=== PATIENT | male | born 1960 | race Caucasian/White ===

== ENCOUNTER 2024-06-05 18:24 | Inpatient (IN) ==
--- NOTE | 2024-06-05 18:55 | XRay Report ---
XR chest 1V portable CLINICAL HISTORY: Dyspnea TECHNIQUE: Single frontal radiograph of the chest was obtained. Comparison: None available at the time of this dictation. FINDINGS: No lines and tubes are seen. The cardiomediastinal silhouette is normal. Faint right lower lung airsp florin opacity is suggested. No evidence of pleural effusion or pneumothorax. IMPRESSION: Possible right lower lung airspace opacity. This may represent atelectasis, pneumonia, and/or aspirat ion. ACT 112: Negative or not required by law. Electronically signed by: Bobby Chou M.D. 06/05/2024 6:53 PM
[2024-06-05 20:11] LABS: Basophils # (auto) 0.03 K/uL (0.00-0.20); Basophils % (auto) 0.3 %; Eosinophils # (auto) 0.03 K/uL (0.00-0.50); Eosinophils % (auto) 0.3 %; Immature Granulocytes # (auto) 0.03 K/uL (0.01-0.20); Immature Granulocytes % (auto) 0.3 %; Lymphocytes # (auto) 0.96 K/uL (1.20-3.40); Lymphocytes % (auto) 10.9 %; Mean Corpuscular Hemoglobin 31.4 pg (25.0-34.0); Mean Corpuscular Hgb Conc 34.8 g/dL (32.0-36.0); Mean Corpuscular Volume 90.4 fL (80.0-100.0); Mean Platelet Volume 8.7 fL (9.4-12.4); Monocytes # (auto) 0.89 K/uL (0.11-0.59); Monocytes % (auto) 10.1 %; Neutrophils # (auto) 6.87 K/uL (1.40-6.50); Neutrophils % (auto) 78.1 %; Platelet Count 256 K/uL (130-400); RDW Coefficient of Variation 11.9 % (11.5-14.5); RDW Standard Deviation 39.4 fL (36.4-46.3); Red Blood Count 5.09 M/uL (4.70-6.10); White Blood Count 8.81 K/ul (4.8-10.8)
[2024-06-05] MEDS: ACETAMINOPHEN 500 MG TAB PO STA (20:20)
[2024-06-05 20:27] LABS: Albumin Level 4.1 gm/dl (3.4-5.0); BUN Creatinine Ratio 20.5 (10-20); Bilirubin,Total 0.5 mg/dl (0.2-1.0); Calcium 9.7 mg/dl (8.6-10.3); Creatinine Clr Calc Pharmacy 84.8 ml/min; Globulin 4.1 gm/dl (2.5-4.0); Potassium 4.4 mmol/L (3.5-5.1); Total Protein 8.2 gm/dl (6.0-8.3)
[2024-06-05 20:33] LABS: Troponin I High Sensitivity 7.9 pg/ml (0-20)
[2024-06-05] MEDS: ACETAMINOPHEN 1,000 MG/100 ML VIAL IV STA (20:35)
[2024-06-05 20:44] LABS: INR 1.1 (0.9-1.1); Partial Thromboplastin Time 27 Seconds (21-31); Prothrombin Time 11.4 Seconds (9.0-12.0)
[2024-06-05] MEDS: OPTIRAY 320 100ml IV ONE (20:55)
[2024-06-05 20:57] LABS: Adenovirus PCR Not Detected (NotDetected); Bordetella parapertussis PCR Not Detected (NotDetected); Bordetella pertussis PCR Not Detected (NotDetected); Chlamydia pneumoniae PCR Not Detected (NotDetected); Coronavirus 229E PCR Not Detected (NotDetected); Coronavirus CoV-2 (COVID19)PCR Not Detected (NotDetected); Coronavirus HKU1 PCR Not Detected (NotDetected); Coronavirus NL63 PCR Not Detected (NotDetected); Coronavirus OC43PCR Not Detected (NotDetected); Human Metapneumovirus PCR Not Detected (NotDetected); Influenza A PCR Not Detected (NotDetected); Influenza B PCR Not Detected (NotDetected); Mycoplasma pneumoniae PCR Not Detected (NotDetected); Parainfluenza Virus 1 PCR Not Detected (NotDetected); Parainfluenza Virus 2 PCR Not Detected (NotDetected); Parainfluenza Virus 3 PCR Not Detected (NotDetected); Parainfluenza Virus 4 PCR Not Detected (NotDetected); Respiratory Syncytial VirusPCR Not Detected (NotDetected); Rhinovirus/Enterovirus PCR Not Detected (NotDetected)
--- NOTE | 2024-06-05 21:30 | Emergency Department Note ---
Impression & Plan Acute dyspnea, Cough, Bilateral pneumonia, Fever ED Provider Note HISTORY OF PRESENT ILLNESS: Patient is a 64-year-old male presenting with shortness of breath and cough. Patient reports he has been feeling generally unwell for the last 4 days. Reports his symptoms have been getting progressively worse. He saw his primary care provider 4 days ago and was diagnosed with an upper respiratory infection and started on Augmentin. He states he was also given prescription for Tessalon Perles. He reports that he has significant shortness of breath with any sort of ambulation and with laying flat at night. He denies any DVT or PE history. He is not on any anticoagulation. He denies any measured fevers at home. He denies any recent sick contact exposures. He reports he has been short of breath and has had a cough productive of a yellow sputum. He denies any abdominal pain, nausea or vomiting. ROS: as above PHYSICAL EXAM: Constitutional: Patient appears in no acute distress. HENT: Head: Normocephalic and atraumatic. Eyes: EOMI, PERRL Mouth/Throat: Mucous membranes moist. Neck: Trachea midline. Neck supple. Cardiovascular: Tachycardic with regular rhythm. No murmurs, rubs or gallops. Intact distal pulses. Pulmonary/Chest: No respiratory distress. Breath sounds clear and equal bilaterally. No wheezes or rales. Abdominal: Abdomen soft, no tenderness, rebound or guarding. Musculoskeletal: No edema, tenderness or deformity noted. Skin: Warm and dry. No rash, erythema, pallor or cyanosis Psychiatric: Appropriate mood and affect for situation. Neurological: Alert and keenly responsive. CN II-XII grossly intact, moving all extremities equally and fully. MDM: - Vitals signs showed fever, tachycardia and tachypnea - History obtained via patient. History as above. - Chronic conditions affecting care: HLD - Differential diagnoses include, but are not limited to: Congestive heart failure; acute coronary syndrome; COPD/asthma exacerbation; pulmonary edema; pulmonary embolism; pneumonia; pneumothorax; viral syndrome - Order placed for continuous cardiac monitoring. At this time, monitor showed rate of 98 bpm with normal sinus rhythm, per my interpretation. - External medical records reviewed. Primary care visit note dated 06/02/2024 was reviewed. Patient was prescribed Augmentin for treatment of a presumed URI. - EKG interpreted by myself showed normal sinus rhythm. Rate tachycardic at 101 bpm. QT 324. No acute ischemic changes. - Laboratory workup interpreted by myself showed normal WBC but elevated neutrophils; normal PT/INR; normal lactate; slight hyponatremia (Na 135); normal troponin; normal procalcitonin - CXR showed concern for bilateral pneumonia, per my interpretation. - Viral respiratory panel negative - Given patient's significant tachycardia, CT PE obtained. CT PE negative for PE, but noted to have patchy bilateral nodular interstitial infiltrate (L>R) concerning for pneumonia. - Patient given 1g IV tylenol for his headache and fever. On reassessment, he still complaining of a headache. - Patient given 1L NS, 5 mg IV compazine and 25 mg IV benadryl for further headache management. - Started on IV rocephin + doxycycline for pneumonia coverage. - Discussed results with patient. He reports that he is feeling generally unwell and questions his ability to go home at this point. He was previously on Augmentin and has been on Augmentin for the last few days and still has findings of pneumonia. Will admit to hospital service for further evaluation and management. - Discussion was had with case filler about patient's case and need for admission - Hospitalist, Dr. Inman, consulted for admission - [facility] ASSESSMENT AND PLAN: Diagnosis: acute dyspnea; headache; bilateral pneumonia; fever Plan: admit Past Med/Surg History Problem List (Updated 06/05/24 @ 23:01 by Judi Heredia MD) Fever (Acute) Bilateral pneumonia (Acute) Cough (Acute) Acute dyspnea (Acute) Hyperlipidemia Medical History History of rheumatic fever Surgical History Status post cystoscopy Family History Mother Diabetes Grandfather (Maternal) Diabetes Father Myocardial infarction Coronary heart disease Denies family history of Ovarian cancer Prostate cancer Breast cancer Lung cancer Colorectal cancer Social History Smoking Status: Unknown if ever smoked Tobacco Type: Smokeless Tobacco (Dip or Chew) Age Started Using Tobacco: 13; Age Quit Using Tobacco: 56; Second Hand Exposure: No; Do You Dip or Chew Tobacco: No; Hx Alcohol Use: Yes Alcohol type: beer Alcohol Intake Frequency: 2-3 x/Week Alcohol Intake Frequency Comment: drinks 10-12 beers 2x weekly Hx Substance Use: No Preferred Language: Mauritian Visual Impairment: No Limitations Hearing Ability: Normal 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 Beliefs That Will Affect Care: None marital status: marital status details: currently engaged Current Living Situation: Significant Other current occupational status: retired current occupation: Retired [employer]; How many Children do You have: 0 Feels Safe at Home: Yes Childhood Exposure to Second-Hand Smoke: Yes Diet: regular caffeine: Yes during the past year weight has: remained stable Dental Care, Regularly: Yes Physical Activity Frequency: Daily Physical Activity Frequency Comment: works daily Seatbelt Use: always Sunscreen Use: No Allergies Allergies Allergy/AdvReac Type Severity Reaction Status Date / Time No Known Allergies Allergy Unverified 06/02/24 12:33 Home Meds Previous Rx's Medication Instructions Recorded rosuvastatin 10 mg tablet (Crestor) 10 mg PO DAILY #90 tabs 08/21/23 amoxicillin 875 mg-potassium 1 tab PO BID 7 days #14 tabs 06/02/24 clavulanate 125 mg tablet benzonatate 200 mg capsule 200 mg PO TID PRN cough #20 caps 06/02/24 Results & Data (ED) Vital Signs Vital Signs - 24 hr 06/05/24 18:28 06/05/24 20:02 06/05/24 20:07 Temperature 38.6 C H Temperature Source Oral Pulse Rate 123 H Pulse Rate [Apical] 105 H Respiratory Rate 20 24 Respiratory Effort / Characteristics Non-Labored Respiratory Depth Normal Blood Pressure 126/73 Blood Pressure [Right Arm] 161/94 H Blood Pressure Mean 90 Blood Pressure Mean [Right Arm] 116 Blood Pressure Position [Right Arm] Pulse Oximetry 94 94 Oxygen Delivery Method Room Air Room Air Room Air Sepsis Recent Fever Within 48 Hours No Sepsis New/Unexplained Change in Mental Status N/A Sepsis Action Taken by Nursing No Action Required 06/05/24 21:00 06/05/24 22:00 Temperature 38.0 C H 37.8 C H Temperature Source Oral Oral Pulse Rate Pulse Rate [Apical] 98 H 90 Respiratory Rate 27 H 22 Respiratory Effort / Characteristics Non-Labored Non-Labored Respiratory Depth Normal Blood Pressure Blood Pressure [Right Arm] 122/80 128/75 Blood Pressure Mean Blood Pressure Mean [Right Arm] 94 92 Blood Pressure Position [Right Arm] Lying Lying Pulse Oximetry 92 95 Oxygen Delivery Method Room Air Room Air Sepsis Recent Fever Within 48 Hours Sepsis New/Unexplained Change in Mental Status Sepsis Action Taken by Nursing Laboratory Data 06/05/24 19:56 06/05/24 19:56 Lab Results 06/05/24 06/05/24 Range/Units 19:56 20:40 WBC 8.81 (4.8-10.8) K/ul RBC 5.09 (4.70-6.10) M/uL Hgb 16.0 (14.0-18.0) g/dl Hct 46.0 (42.0-52.0) % MCV 90.4 (80.0-100.0) fL MCH 31.4 (25.0-34.0) pg MCHC 34.8 (32.0-36.0) g/dL RDW Std Deviation 39.4 (36.4-46.3) fL RDW Coeff of [place] 11.9 (11.5-14.5) % Plt Count 256 (130-400) K/uL MPV 8.7 L (9.4-12.4) fL Immature Gran % (Auto) 0.3 % Neut % (Auto) 78.1 % Lymph % (Auto) 10.9 % Wilkin % (Auto) 10.1 % Eos % (Auto) 0.3 % Baso % (Auto) 0.3 % Neut # (Auto) 6.87 H (1.40-6.50) K/uL Lymph # (Auto) 0.96 L (1.20-3.40) K/uL Wilkin # (Auto) 0.89 H (0.11-0.59) K/uL Eos # (Auto) 0.03 (0.00-0.50) K/uL Baso # (Auto) 0.03 (0.00-0.20) K/uL Immature Gran # (Auto) 0.03 (0.01-0.20) K/uL PT 11.4 (9.0-12.0) Seconds INR 1.1 (0.9-1.1) APTT 27 (21-31) Seconds PTT Ratio 1.0 Sodium 135 L (136-145) mmol/L Potassium 4.4 (3.5-5.1) mmol/L Chloride 104 (98-107) mmol/L Carbon Dioxide 25 (21-32) mmol/L Anion Gap 6 (3-11) BUN 23 (6-23) mg/dl Creatinine 1.12 (0.6-1.4) mg/dl Est Cr Clr Drug Dosing 84.8 ml/min eGFR 74.28 BUN/Creatinine Ratio 20.5 H (10-20) Glucose 114 H (70-99(Fasting)) mg/dl Lactate 1.2 (0.4-2.0) mmol/L Calcium 9.7 (8.6-10.3) mg/dl Total Bilirubin 0.5 (0.2-1.0) mg/dl AST 18 (13-39) U/L ALT 15 (7-52) U/L Alkaline Phosphatase 80 (34-104) U/L Troponin I High Sens 7.9 (0-20) pg/ml Total Protein 8.2 (6.0-8.3) gm/dl Albumin 4.1 (3.4-5.0) gm/dl Globulin 4.1 H (2.5-4.0) gm/dl Albumin/Globulin Ratio 1.0 (0.9-2) Procalcitonin 0.07 (0-0.5) ng/ml Adenovirus (PCR) Not Detected (NotDetected) B. pertussis DNA (PCR) Not Detected (NotDetected) B.parapertussis DNA PCR Not Detected (NotDetected) C. pneumoniae DNA (PCR) Not Detected (NotDetected) Coronavirus OC43 (PCR) Not Detected (NotDetected) Coronavirus HKU1 (PCR) Not Detected (NotDetected) Coronavirus 229E (PCR) Not Detected (NotDetected) SARS-CoV-2 (PCR) Not Detected (NotDetected) Coronavirus NL63 (PCR) Not Detected (NotDetected) Human Metapneumovir PCR Not Detected (NotDetected) Influenza Type A (PCR) Not Detected (NotDetected) Influenza Type B (PCR) Not Detected (NotDetected) M. pneumoniae (PCR) Not Detected (NotDetected) Parainfluenza 1 (PCR) Not Detected (NotDetected) Parainfluenza 2 (PCR) Not Detected (NotDetected) Parainfluenza 3 (PCR) Not Detected (NotDetected) Parainfluenza 4 (PCR) Not Detected (NotDetected) RSV (PCR) Not Detected (NotDetected) Entero/Rhino (PCR) Not Detected (NotDetected) Administered Medications Discontinued Medications Acetaminophen (Acetaminophen 500 Mg Tab) 1,000 mg PO NOW STA Stop: 06/05/24 20:14 Last Admin: 06/05/24 20:20 Dose: 1,000 mg Documented By: AN Acetaminophen (Ofirmev) 1,000 mg in 100 mls @ 400 mls/hr IV NOW STA Stop: 06/05/24 20:42 Last Admin: 06/05/24 20:35 Dose: Not Given Documented By: AN Ioversol (Optiray 320 100ml) 119 ml IV ONCE ONE Stop: 06/05/24 20:55 Last Admin: 06/05/24 20:55 Dose: 119 ml Documented By: EDK Imaging Data Radiologist's Impression: Chest X-Ray 06/05/24 18:32 XR chest 1V portable CLINICAL HISTORY: Dyspnea TECHNIQUE: Single frontal radiograph of the chest was obtained. Comparison: None available at the time of this dictation. FINDINGS: No lines and tubes are seen. The cardiomediastinal silhouette is normal. Faint right lower lung airspace opacity is suggested. No evidence of pleural effusion or pneumothorax. IMPRESSION: Possible right lower lung airspace opacity. This may represent atelectasis, pneumonia, and/or aspiration. ACT 112: Negative or not required by law. Electronically signed by: Bobby Chou M.D. 06/05/2024 6:53 PM Chest CTA 06/05/24 20:27 Exam(s): CTA CHEST IV Amt: 119ml opti 320 EXAM: CT Angiography Chest With Intravenous Contrast CLINICAL HISTORY: Reason for exam: PE. TECHNIQUE: Axial computed tomographic angiography images of the chest with intravenous contrast. CTDI is 38.19 mGy and DLP is 807.44 mGy-cm. Automated exposure control was utilized for the study. A dose lowering technique was utilized adhering to the principles of ALARA. MIP reconstructed images were created and reviewed. 119 mL OPTi 320 given IV. Excellent pulmonary arterial contrast. COMPARISON: Chest x-ray done earlier the same day, and a CT abdomen pelvis 09/07/2019. FINDINGS: Pulmonary arteries: No pulmonary embolism. Aorta: No dissection or aneurysm. Lungs: Nodular interstitial infiltrate intermittently in the left lung and in the right middle lobe, nonspecific, may be chronic or inflammatory/infectious, neoplasm is not excluded.. No consolidation. Pleural space: No significant effusion. No pneumothorax. Heart: No cardiomegaly. No significant pericardial effusion. No evidence of elevated right heart pressures. Bones/joints: No acute fracture. Soft tissues: Unremarkable. Lymph nodes: Mildly prominent left subcarinal lymph node, short axis I 0.6 cm. Nonenlarged left hilar lymph nodes are also nonspecific. IMPRESSION: 1. No pulmonary embolism. 2. Patchy bilateral nodular interstitial infiltrate, left greater than right, nonspecific, could reflect pneumonia, though neoplasm is not excluded. 3. Mildly prominent mediastinal and left hilar lymph nodes, nonspecific. Electronically signed by: Marlin Bowles M.D. 06/05/24 21:27 PM Discharge Plan Visit Data Chief Complaint: Shortness of Breath/Dyspnea Stated Complaint: SOB, WEAK, VOMIT ED Provider: Judi Heredia Discharge Problem: Acute dyspnea, Cough, Bilateral pneumonia, Fever Forms Stand Alone Forms: My [facility] [place] [employer] Prescriptions Prescriptions: No Action rosuvastatin [Crestor] 10 mg tablet 10 mg PO DAILY Qty: 90 2RF amoxicillin-pot clavulanate 875-125 mg tablet 1 tab PO BID 7 Days Qty: 14 0RF benzonatate 200 mg capsule 200 mg PO TID PRN (Reason: cough) Qty: 20 0RF Referrals Referrals: Nubia Arevalo DO [Primary Care Provider] -
[2024-06-05] MEDS: SODIUM CHLORIDE 0.9% 1,000 ML IV ONE (23:07)
[2024-06-05] MEDS: diphenhydrAMINE 50 MG/ML VIAL IV STA (23:07)
[2024-06-05] MEDS: cefTRIAXone SODIUM 2,000 MG/50 ML BAG IV STA (23:08)
[2024-06-05] MEDS: PROCHLORPERAZINE 1 ML IV ONE (23:08)
[2024-06-05] MEDS: DOXYCYCLINE HYCLATE 100 MG in DEXTROSE 5% MINI-B 100 ML IV STA (23:45)
[2024-06-05] MEDS ORDERED: ALBUT/IPRATROP 3MG/0.5MG NEB 3 ML VIAL NEB PRN (23:54)
--- NOTE | 2024-06-05 23:57 | History & Physical Report ---
Date of Service June 05, 2024 Assessment & Plan (1) Bilateral pneumonia: (2) Hyperlipidemia: (3) Temporal headache: (4) Fever: (5) Cough: (6) Acute dyspnea: Plan Bilateral pneumonia- Patient presents with 1 week of worsening temporal headache, intermittently productive cough, shortness of breath, dyspnea on exertion and fatigue. Patient was seen at PCPs office on 06/02/2024, and was placed on Augmentin 875 mg twice daily, and Tessalon Perles 200 mg p.o. 3 times daily as needed BioFire testing negative this evening CTA chest was negative for PE. Did show bilateral infiltrates, left greater than right, with mediastinal and left hilar lymphadenopathy. Sputum Gram stain and culture Continue ceftriaxone 2 g IV and doxycycline 100 mg IV every 12 hours begun in the ED Give Solu-Medrol 60 mg IV now, and then 40 mg IV every 12 hours Guaifenesin 1200 mg p.o. 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 He also reports a bitemporal headache, and overall feels dehydrated associated with decreased oral intake due to decreased appetite. He went to his PCP on 06/02/2024, received a prescription for Augmentin and Tessalon Perles, and presents to the ED due to worsening of symptoms Primary Care Provider: Nubia Arevalo DO The patient is a 64-year-old male with a past medical history including hyperlipidemia, who presents to the emergency department with symptoms as noted above. Workup in the emergency department including a negative BioFire test, the chest x-ray showed a right lower lobe infiltrate, and CTA chest was negative for PE, showed bilateral infiltrates left greater than right, and mediastinal and left hilar lymphadenopathy. Allergies Allergy/AdvReac Type Severity Reaction Status Date / Time No Known Allergies Allergy Unverified 06/02/24 12:33 Home Medications Medication Instructions Recorded Confirmed Type rosuvastatin 10 mg tablet (Crestor) 10 mg PO DAILY #90 tabs 08/21/23 06/05/24 Rx amoxicillin 875 mg-potassium 1 tab PO BID 7 days #14 tabs 06/02/24 06/05/24 Rx clavulanate 125 mg tablet benzonatate 200 mg capsule 200 mg PO TID PRN cough #20 caps 06/02/24 06/05/24 Rx Past Med/Surg History Problem List (Updated 06/06/24 @ 01:10 by Lamin Inman MD) Temporal headache Fever (Acute) Bilateral pneumonia (Acute) Cough (Acute) Acute dyspnea (Acute) Hyperlipidemia Medical History History of rheumatic fever Surgical History Status post cystoscopy Family History Mother Diabetes Grandfather (Maternal) Diabetes Father Myocardial infarction Coronary heart disease Denies family history of Ovarian cancer Prostate cancer Breast cancer Lung cancer Colorectal cancer Social History Smoking Status: Unknown if ever smoked Tobacco Type: Smokeless Tobacco (Dip or Chew) Age Started Using Tobacco: 13; Age Quit Using Tobacco: 56; Second Hand Exposure: No; Do You Dip or Chew Tobacco: No; Hx Alcohol Use: Yes Alcohol type: beer Alcohol Intake Frequency: 2-3 x/Week Alcohol Intake Frequency Comment: drinks 10-12 beers 2x weekly Hx Substance Use: No Preferred Language: [place] Island[place] Visual Impairment: No Limitations Hearing Ability: Normal Community Pharmacist Required: No Beliefs That Will Affect Care: None marital status: marital status details: currently engaged Current Living Situation: Significant Other current occupational status: retired 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 [employer]; How many Children do You have: 0 Feels Safe at Home: Yes Childhood Exposure to Second-Hand Smoke: Yes Diet: regular caffeine: Yes during the past year weight has: remained stable Dental Care, Regularly: Yes Physical Activity Frequency: Daily Physical Activity Frequency Comment: works daily Seatbelt Use: always Sunscreen Use: No Review of Systems Review of Systems: The patient denies chest pain, palpitations, lower extremity swelling, sore throat, fevers, chills, sweats, nausea, vomiting, diarrhea , constipation, abdominal pain, pelvic pain, blood in urine or stool, dysuria, urinary frequency or urgency, memory loss, loss of consciousness, rash, abnormal bruising or bleeding, imbalance, focal weakness, numbness or tingling in arms or legs, generalized arthralgias or myalgias, back or neck pain, or night sweats. The review of systems is otherwise negative other than for that already noted above, and at least 10 systems have been reviewed. Physical Exam Physical Exam: The patient is awake, alert and oriented 3, well developed and well nourished, normocephalic and atraumatic, lying in bed and in no acute distress. HEENT--PERRL, EOMI, mucous membranes and oropharynx dry. Neck--supple. No JVD. No bruits. Thyroid normal, trachea midline, no adenopathy. Heart--normal S1 and S2. No murmurs, rubs or gallops. Lungs--coarse breath sounds with wheezes bilaterally. no respiratory distress, no accessory muscle use. Abdomen--normal bowel sounds and soft. Nontender. Nondistended, no hernias or masses, no organomegaly. Extremities--no cyanosis or clubbing. No edema. There are good distal pulses b/l. Dermatologic--normal skin turgor, normal color, no abnormal lymph nodes, no rash. Neurologic--cranial nerves II through XII grossly intact. Rheumatologic--normal range of motion. Psychiatric--normal affect. Results & Data Results & Data Vital Signs (Past 12 Hours) Vital Signs Temp Pulse Pulse Resp BP BP Pulse Ox 06/05/24 23:13 37.5 C 88 21 141/80 H 94 06/05/24 22:00 37.8 C H 90 22 128/75 95 06/05/24 21:00 38.0 C H 98 H 27 H 122/80 92 06/05/24 20:07 38.6 C H 105 H 24 161/94 H 94 06/05/24 20:02 06/05/24 18:28 123 H 20 126/73 94 O2 Del Method 06/05/24 23:13 Room Air 06/05/24 22:00 Room Air 06/05/24 21:00 Room Air 06/05/24 20:07 Room Air 06/05/24 20:02 Room Air 06/05/24 18:28 Room Air Laboratory Results Laboratory Results WBC 8.81 K/ul (4.8-10.8) 06/05/24 19:56 RBC 5.09 M/uL (4.70-6.10) 06/05/24 19:56 Hgb 16.0 g/dl (14.0-18.0) 06/05/24 19:56 Hct 46.0 % (42.0-52.0) 06/05/24 19:56 MCV 90.4 fL (80.0-100.0) 06/05/24 19:56 MCH 31.4 pg (25.0-34.0) 06/05/24 19:56 MCHC 34.8 g/dL (32.0-36.0) 06/05/24 19:56 RDW Std Deviation 39.4 fL (36.4-46.3) 06/05/24 19:56 RDW Coeff of [place] 11.9 % (11.5-14.5) 06/05/24 19:56 Plt Count 256 K/uL (130-400) 06/05/24 19:56 MPV 8.7 fL (9.4-12.4) L 06/05/24 19:56 Immature Gran % (Auto) 0.3 % 06/05/24 19:56 Neut % (Auto) 78.1 % 06/05/24 19:56 Lymph % (Auto) 10.9 % 06/05/24 19:56 [place] % (Auto) 10.1 % 06/05/24 19:56 Eos % (Auto) 0.3 % 06/05/24 19:56 Baso % (Auto) 0.3 % 06/05/24 19:56 Neut # (Auto) 6.87 K/uL (1.40-6.50) H 06/05/24 19:56 Lymph # (Auto) 0.96 K/uL (1.20-3.40) L 06/05/24 19:56 [place] # (Auto) 0.89 K/uL (0.11-0.59) H 06/05/24 19:56 Eos # (Auto) 0.03 K/uL (0.00-0.50) 06/05/24 19:56 Baso # (Auto) 0.03 K/uL (0.00-0.20) 06/05/24 19:56 Immature Gran # (Auto) 0.03 K/uL (0.01-0.20) 06/05/24 19:56 PT 11.4 Seconds (9.0-12.0) 06/05/24 19:56 INR 1.1 (0.9-1.1) 06/05/24 19:56 APTT 27 Seconds (21-31) 06/05/24 19:56 PTT Ratio 1.0 06/05/24 19:56 Sodium 135 mmol/L (136-145) L 06/05/24 19:56 Potassium 4.4 mmol/L (3.5-5.1) 06/05/24 19:56 Chloride 104 mmol/L (98-107) 06/05/24 19:56 Carbon Dioxide 25 mmol/L (21-32) 06/05/24 19:56 Anion Gap 6 (3-11) 06/05/24 19:56 BUN 23 mg/dl (6-23) 06/05/24 19:56 Creatinine 1.12 mg/dl (0.6-1.4) 06/05/24 19:56 Est Cr Clr Drug Dosing 84.8 ml/min 06/05/24 19:56 eGFR 74.28 06/05/24 19:56 BUN/Creatinine Ratio 20.5 (10-20) H 06/05/24 19:56 Glucose 114 mg/dl (70-99(Fasting)) H 06/05/24 19:56 Lactate 1.2 mmol/L (0.4-2.0) 06/05/24 20:40 Calcium 9.7 mg/dl (8.6-10.3) 06/05/24 19:56 Total Bilirubin 0.5 mg/dl (0.2-1.0) 06/05/24 19:56 AST 18 U/L (13-39) 06/05/24 19:56 ALT 15 U/L (7-52) 06/05/24 19:56 Alkaline Phosphatase 80 U/L (34-104) 06/05/24 19:56 Troponin I High Sens 7.9 pg/ml (0-20) 06/05/24 19:56 Total Protein 8.2 gm/dl (6.0-8.3) 06/05/24 19:56 Albumin 4.1 gm/dl (3.4-5.0) 06/05/24 19:56 Globulin 4.1 gm/dl (2.5-4.0) H 06/05/24 19:56 Albumin/Globulin Ratio 1.0 (0.9-2) 06/05/24 19:56 Procalcitonin 0.07 ng/ml (0-0.5) 06/05/24 19:56 Adenovirus (PCR) Not Detected (NotDetected) 06/05/24 19:56 B. pertussis DNA (PCR) Not Detected (NotDetected) 06/05/24 19:56 B.parapertussis DNA PCR Not Detected (NotDetected) 06/05/24 19:56 C. pneumoniae DNA (PCR) Not Detected (NotDetected) 06/05/24 19:56 Coronavirus OC43 (PCR) Not Detected (NotDetected) 06/05/24 19:56 Coronavirus HKU1 (PCR) Not Detected (NotDetected) 06/05/24 19:56 Coronavirus 229E (PCR) Not Detected (NotDetected) 06/05/24 19:56 SARS-CoV-2 (PCR) Not Detected (NotDetected) 06/05/24 19:56 Coronavirus NL63 (PCR) Not Detected (NotDetected) 06/05/24 19:56 Human Metapneumovir PCR Not Detected (NotDetected) 06/05/24 19:56 Influenza Type A (PCR) Not Detected (NotDetected) 06/05/24 19:56 Influenza Type B (PCR) Not Detected (NotDetected) 06/05/24 19:56 M. pneumoniae (PCR) Not Detected (NotDetected) 06/05/24 19:56 Parainfluenza 1 (PCR) Not Detected (NotDetected) 06/05/24 19:56 Parainfluenza 2 (PCR) Not Detected (NotDetected) 06/05/24 19:56 Parainfluenza 3 (PCR) Not Detected (NotDetected) 06/05/24 19:56 Parainfluenza 4 (PCR) Not Detected (NotDetected) 06/05/24 19:56 RSV (PCR) Not Detected (NotDetected) 06/05/24 19:56 Entero/Rhino (PCR) Not Detected (NotDetected) 06/05/24 19:56 Impressions Chest X-Ray 06/05/24 18:32 XR chest 1V portable CLINICAL HISTORY: Dyspnea TECHNIQUE: Single frontal radiograph of the chest was obtained. Comparison: None available at the time of this dictation. FINDINGS: No lines and tubes are seen. The cardiomediastinal silhouette is normal. Faint right lower lung airspace opacity is suggested. No evidence of pleural effusion or pneumothorax. IMPRESSION: Possible right lower lung airspace opacity. This may represent atelectasis, pneumonia, and/or aspiration. ACT 112: Negative or not required by law. Electronically signed by: Bobby Chou M.D. 06/05/2024 6:53 PM Chest CTA 06/05/24 20:27 Exam(s): CTA CHEST IV Amt: 119ml opti 320 EXAM: CT Angiography Chest With Intravenous Contrast CLINICAL HISTORY: Reason for exam: PE. TECHNIQUE: Axial computed tomographic angiography images of the chest with intravenous contrast. CTDI is 38.19 mGy and DLP is 807.44 mGy-cm. Automated exposure control was utilized for the study. A dose lowering technique was utilized adhering to the principles of ALARA. MIP reconstructed images were created and reviewed. 119 mL OPTi 320 given IV. Excellent pulmonary arterial contrast. COMPARISON: Chest x-ray done earlier the same day, and a CT abdomen pelvis 09/07/2019. FINDINGS: Pulmonary arteries: No pulmonary embolism. Aorta: No dissection or aneurysm. Lungs: Nodular interstitial infiltrate intermittently in the left lung and in the right middle lobe, nonspecific, may be chronic or inflammatory/infectious, neoplasm is not excluded.. No consolidation. Pleural space: No significant effusion. No pneumothorax. Heart: No cardiomegaly. No significant pericardial effusion. No evidence of elevated right heart pressures. Bones/joints: No acute fracture. Soft tissues: Unremarkable. Lymph nodes: Mildly prominent left subcarinal lymph node, short axis I 0.6 cm. Nonenlarged left hilar lymph nodes are also nonspecific. IMPRESSION: 1. No pulmonary embolism. 2. Patchy bilateral nodular interstitial infiltrate, left greater than right, nonspecific, could reflect pneumonia, though neoplasm is not excluded. 3. Mildly prominent mediastinal and left hilar lymph nodes, nonspecific. Electronically signed by: Marlin Bowles M.D. 06/05/24 21:27 PM Code Status & VTE Plan Code Status Full code VTE Prophylaxis Plan VTE Prophylaxis will be ordered: Yes PG Care Time/CCT Total # of Minutes Spent Total Time Spent with Patient: Total time spent is greater than 50% in coordination of care (as documented) at patient's floor/unit and/or counseling patient: Coding Level of Care Code 54614 INT INP/OBS CARE 2/55MIN Diagnoses Bilateral pneumonia J18.9 Hyperlipidemia E78.5 Temporal headache R51.9 Fever R50.9 Cough R05.9 Acute dyspnea R06.00
[2024-06-06] MEDS: guaiFENesin 600 MG TABCR PO STA (00:31)
[2024-06-06] MEDS: methylPREDNISolone 125 MG/2 ML VIAL IV STA (00:32)
[2024-06-06] MEDS ORDERED: BENZONATATE 100 MG CAPSULE PO PRN (01:44)
[2024-06-06 06:58] LABS: Hemoglobin 14.4 g/dl (14.0-18.0); Mean Corpuscular Hgb Conc 35.1 g/dL (32.0-36.0); Mean Corpuscular Volume 88.4 fL (80.0-100.0); Mean Platelet Volume 8.9 fL (9.4-12.4); Platelet Count 233 K/uL (130-400); RDW Coefficient of Variation 11.8 % (11.5-14.5); RDW Standard Deviation 37.7 fL (36.4-46.3); Red Blood Count 4.64 M/uL (4.70-6.10); White Blood Count 7.87 K/ul (4.8-10.8)
[2024-06-06 07:12] LABS: Albumin Level 3.8 gm/dl (3.4-5.0); BUN Creatinine Ratio 17.8 (10-20); Calcium 8.8 mg/dl (8.6-10.3); Magnesium 1.8 mg/dl (1.7-2.4); Phosphorus 2.3 mg/dl (2.5-4.9); Potassium 4.1 mmol/L (3.5-5.1)
[2024-06-06] MEDS: ACETAMINOPHEN 325 MG TAB PO PRN ×2 (07:29→20:00)
[2024-06-06] MEDS: methylPREDNISolone 40 MG in SYRINGE 0 ML IV SCH (07:29)
[2024-06-06] MEDS: ROSUVASTATIN CALCIUM 10 MG TAB PO SCH (07:30)
[2024-06-06] MEDS: guaiFENesin 600 MG TABCR PO SCH (07:30)
[2024-06-06 07:35] LABS: Basophils # (auto) 0.01 K/uL (0.00-0.20); Basophils % (auto) 0.1 %; Immature Granulocytes # (auto) 0.03 K/uL (0.01-0.20); Immature Granulocytes % (auto) 0.4 %; Lymphocytes # (auto) 0.38 K/uL (1.20-3.40); Lymphocytes % (auto) 4.8 %; Monocytes # (auto) 0.11 K/uL (0.11-0.59); Monocytes % (auto) 1.4 %; Neutrophils # (auto) 7.34 K/uL (1.40-6.50); Neutrophils % (auto) 93.3 %; Polychromasia 1+; Tear Drop Cells 1+
[2024-06-06] MEDS ORDERED: INFLUENZA VACC TS2024-25(6m+)/PF (IIV3) 0.5mL Syr IM ONE (07:52)
[2024-06-06] MEDS: DOXYCYCLINE HYCLATE 100 MG in DEXTROSE 5% MINI-B 100 ML IV SCH (08:19)
[2024-06-06] MEDS ORDERED: methylPREDNISolone 10 mg/mL (For Ped Dose < 7mg) IV SCH (09:00)
--- NOTE | 2024-06-06 12:48 | Hospitalist Progress Note ---
Date of Service June 06, 2024 Assessment & Plan (1) Bilateral pneumonia: Plan: Respiratory BioFire testing negative at time of ER presentation. CTA chest negative for PE. CTA chest did show bilateral infiltrates, left greater than right, with mediastinal and left hilar lymphadenopathy. Day #2 of rocephin; day #2 of doxycycline. Send Legionella urine ag to be complete. He was placed on steroids yesterday pm due to severe wheezing - will continue for now. Schedule duneelbs qid. Tessalon. Mucinex. (2) Positive Lyme disease serology: Plan: Due to persistent fevers, headache, etc I obtained blood cx's x 2 sets along with Lyme testing and anaplasmosis smear. Lyme screen is positive -- both IgM and IgG. This would suggest early disseminated disease. Rocephin or doxy will suffice. I am concerned about the severity of his headache and the refractory nature of such. See below. Consider LP to r/o ORAL AND MAXILLOFACIAL SURGERY RESIDENT lyme disease. Lyme typically does not cause pulmonary symptoms but anaplasmosis can rarely cause such. Will add on anaplasmosis DNA in the am. (3) Temporal headache: Plan: 2nd to #1, #2. Gave toradol + flexeril earlier today --> no relief. Tylenol prn --> no relief. Will try oxycodone prn. He has no h/o migraine, mixed tension-migraine, or cluster headaches. He does not have meningismus, but certainly the refractory nature of his headache is concerning. If he continues to have persistent headache into tomorrow strongly consider LP. Of note - the steroids for #1 may help his headache. (4) Fever: Plan: 2nd to #1? 2nd to #2? other? combination? sent blood cx's. cont rocephin. cont doxy. see discussion above in #1, #2, #3. (5) Hyperlipidemia: Plan: can continue statin for now LFTs have been wnl Plan DVT proph - hold off on chemical DVT proph since we may need to pursue LP tomorrow depending on his clinical status, headaches, etc resume IV fluids due to poor PO intake Admission and Anticipated Discharge Date Admission Date: June 05, 2024 Subjective tele overnight - NSR or sinus tach patient c/o severe frontal/temporal headache he is not one to get headaches denies visual changes denies blurry vision denies neck pain or stiffness denies nasal discharge headache is worsened by coughing denies positional change worsening the headache nothing has helped his headache to date tylenol not helpful toradol / NSAIDs not helpful denies h/o migraines has no appetite denies any recent travel feels he got his illness from a local restaurant Review of Systems Review of Systems: gen - fevers, chills; anorexia cv - no chest pain or orthopnea pulm - no sputum; some wheezing; no dyspnea at rest GI - no abd pain Physical Exam Physical Exam: gen - looks sick but nontoxic, awake, alert head - no tenderness to palpation over his frontal or maxillary sinuses eyes - conjunctival & scleral injection b/l; PERRL; no photophobia mouth - MM slightly dry neck - no meningismus; able to flex his neck completely; no rigidity; no JVD heart - tachy, s1 s2, no murmur lungs - mild b/l wheezes, no rales, no increased work of breathing; airation fair abd - soft NT ND BS+ ext - no edema, pulses 2+ b/l psych - a/o x 3 Results & Data Results & Data Vital Signs (Past 12 Hours) Vital Signs Temp Pulse Pulse Pulse Resp BP BP 06/06/24 11:39 37.5 C 96 H 16 115/67 06/06/24 09:06 38.2 C H 06/06/24 07:56 38.1 C H 108 H 20 134/65 06/06/24 07:26 06/06/24 07:19 103 H 06/06/24 02:04 06/06/24 01:39 38.3 C H 95 H 18 127/77 06/06/24 01:36 96 H 06/06/24 01:21 37.5 C 92 H 18 107/63 06/06/24 01:00 90 18 107/63 Pulse Ox O2 Del Method 06/06/24 11:39 92 Room Air 06/06/24 09:06 06/06/24 07:56 92 Room Air 06/06/24 07:26 Room Air 06/06/24 07:19 06/06/24 02:04 Room Air 06/06/24 01:39 93 Room Air 06/06/24 01:36 06/06/24 01:21 95 Room Air 06/06/24 01:00 94 Room Air Laboratory Results Laboratory Results - last 24 hr 06/05/24 06/05/24 06/06/24 19:56 20:40 06:27 WBC 8.81 7.87 RBC 5.09 4.64 L Hgb 16.0 14.4 Hct 46.0 41.0 L MCV 90.4 88.4 MCH 31.4 31.0 MCHC 34.8 35.1 RDW Std Deviation 39.4 37.7 RDW Coeff of [place] 11.9 11.8 Plt Count 256 233 MPV 8.7 L 8.9 L Immature Gran % (Auto) 0.3 0.4 Neut % (Auto) 78.1 93.3 Lymph % (Auto) 10.9 4.8 [place] % (Auto) 10.1 1.4 Eos % (Auto) 0.3 0.0 Baso % (Auto) 0.3 0.1 Neut # (Auto) 6.87 H 7.34 H Lymph # (Auto) 0.96 L 0.38 L [place] # (Auto) 0.89 H 0.11 Eos # (Auto) 0.03 0.00 Baso # (Auto) 0.03 0.01 Immature Gran # (Auto) 0.03 0.03 Polychromasia 1+ Tear Drop Cells 1+ PT 11.4 INR 1.1 APTT 27 PTT Ratio 1.0 Sodium 135 L 134 L Potassium 4.4 4.1 Chloride 104 104 Carbon Dioxide 25 24 Anion Gap 6 6 BUN 23 18 Creatinine 1.12 1.01 Est Cr Clr Drug Dosing 84.8 93.0 eGFR 74.28 84.09 BUN/Creatinine Ratio 20.5 H 17.8 Glucose 114 H 146 H Lactate 1.2 Calcium 9.7 8.8 Phosphorus 2.3 L Magnesium 1.8 Total Bilirubin 0.5 AST 18 ALT 15 Alkaline Phosphatase 80 Troponin I High Sens 7.9 Total Protein 8.2 Albumin 4.1 3.8 Globulin 4.1 H Albumin/Globulin Ratio 1.0 Procalcitonin 0.07 Adenovirus (PCR) Not Detected Anaplasma Smear B. pertussis DNA (PCR) Not Detected B.parapertussis DNA PCR Not Detected Lyme Disease Screen Lyme Tier 2 IgG Confirm Lyme Tier 2 IgM Confirm C. pneumoniae DNA (PCR) Not Detected Coronavirus OC43 (PCR) Not Detected Coronavirus HKU1 (PCR) Not Detected Coronavirus 229E (PCR) Not Detected SARS-CoV-2 (PCR) Not Detected Coronavirus NL63 (PCR) Not Detected Human Metapneumovir PCR Not Detected Influenza Type A (PCR) Not Detected Influenza Type B (PCR) Not Detected M. pneumoniae (PCR) Not Detected Parainfluenza 1 (PCR) Not Detected Parainfluenza 2 (PCR) Not Detected Parainfluenza 3 (PCR) Not Detected Parainfluenza 4 (PCR) Not Detected RSV (RT-PCR) RSV (PCR) Not Detected Entero/Rhino (PCR) Not Detected 06/06/24 06/06/24 13:05 16:20 WBC RBC Hgb Hct MCV MCH MCHC RDW Std Deviation RDW Coeff of [place] Plt Count MPV Immature Gran % (Auto) Neut % (Auto) Lymph % (Auto) [place] % (Auto) Eos % (Auto) Baso % (Auto) Neut # (Auto) Lymph # (Auto) [place] # (Auto) Eos # (Auto) Baso # (Auto) Immature Gran # (Auto) Polychromasia Tear Drop Cells PT INR APTT PTT Ratio Sodium Potassium Chloride Carbon Dioxide Anion Gap BUN Creatinine Est Cr Clr Drug Dosing eGFR BUN/Creatinine Ratio Glucose Lactate Calcium Phosphorus Magnesium Total Bilirubin AST ALT Alkaline Phosphatase Troponin I High Sens Total Protein Albumin Globulin Albumin/Globulin Ratio Procalcitonin Adenovirus (PCR) Anaplasma Smear See Comment B. pertussis DNA (PCR) B.parapertussis DNA PCR Lyme Disease Screen Positive H Lyme Tier 2 IgG Confirm Positive H Lyme Tier 2 IgM Confirm Positive H C. pneumoniae DNA (PCR) Coronavirus OC43 (PCR) Coronavirus HKU1 (PCR) Coronavirus 229E (PCR) SARS-CoV-2 (PCR) NEGATIVE Coronavirus NL63 (PCR) Human Metapneumovir PCR Influenza Type A (PCR) Negative Influenza Type B (PCR) Negative M. pneumoniae (PCR) Parainfluenza 1 (PCR) Parainfluenza 2 (PCR) Parainfluenza 3 (PCR) Parainfluenza 4 (PCR) RSV (RT-PCR) Negative RSV (PCR) Entero/Rhino (PCR) PG Care Time/CCT Total # of Minutes Spent Total Time Spent with Patient: Total time spent is greater than 50% in coordination of care (as documented) at patient's floor/unit and/or counseling patient: Coding Level of Care Code 90754 SUB INP/OBS CARE 350MIN Diagnoses Bilateral pneumonia J18.9 Positive Lyme disease serology R76.8 Temporal headache R51.9 Fever R50.9 Hyperlipidemia E78.5
[2024-06-06] MEDS: KETOROLAC TROMETHAMINE 15 MG/ML VIAL IV ONE (13:00)
[2024-06-06] MEDS: CYCLOBENZAPRINE HCL 5 MG TAB PO STA (13:19)
[2024-06-06] MEDS: BENZONATATE 100 MG CAPSULE PO SCH (13:20)
--- NOTE | 2024-06-06 13:44 | CT Scan Report ---
CT SCAN OF THE BRAIN WITHOUT IV CONTRAST CLINICAL HISTORY: Headache. COMPARISON STUDY: MRI of the brain dated 01/28/2021. TECHNIQUE: Unenhanced axial CT scan of the brain is performed from the vertex to the skull base. A d ose lowering technique was utilized adhering to the principles of ALARA. There is residual IV contras t throughout the intracranial circulation. This degrades assessment for hemorrhage. CT DOSE: 703.85 mGy.cm FINDINGS: Brain parenchyma: The brain parenchyma is normal in appearance. There is no hemorrhage, mass effect, or evidence of acute territorial ischemia by CT criteria. Min-white matter differentiation is preser nancy. No extra-axial fluid collection is seen. Ventricles, sulci, cisterns: Normal in configuration. Intracranial vasculature: There is moderate atherosclerotic calcification of the cavernous carotid ar teries. Calvarium: Unremarkable. Sinuses and mastoids: There is trace mucosal thickening within the maxillary antra. Mild calcificatio ns noted within the ethmoid and sigmoid sinuses. An air-fluid level is noted in the right sphenoid si nus. There is trace right mastoid effusion. The left mastoid air cells are well pneumatized. Orbits: The bony orbits are grossly intact. IMPRESSION: No acute intracranial abnormality is identified. ACT 112: Negative or not required by law. Electronically signed by: Misha Avelar M.D. 06/06/2024 1:43 PM
[2024-06-06 13:55] LABS: Influenza A virus by PCR Negative (Neg); Influenza B virus by PCR Negative (Neg); RSV by PCR Negative (Neg); SARS CoV2 RNA(COVID-19) Ceph NEGATIVE (Negative)
[2024-06-06] MEDS: ALBUT/IPRATROP 3MG/0.5MG NEB 3 ML VIAL NEB SCH (14:00)
[2024-06-06 17:46] LABS: Lyme Screen Rflx Confirmation Positive (Negative)
[2024-06-06] MEDS ORDERED: oxyCODONE HCL IR 5 MG TAB (IMMEDIATE RELEASE) PO PRN (17:46)
[2024-06-06 18:20] LABS: Lyme Ab IgG 2nd Tier Confirm Positive (Negative); Lyme Ab IgM 2nd Tier Confirm Positive (Negative)
[2024-06-06] MEDS: SODIUM CHLORIDE 0.9% 1,000 ML IV SCH (18:20)
[2024-06-06] MEDS: BUTALBITAL/ACETAMIN/CAFFEINE TAB PO STA (18:20)
[2024-06-06] MEDS: DOXYCYCLINE HYCLATE 100 MG CAP PO SCH (20:00)
[2024-06-06] MEDS: cefTRIAXone SODIUM 2,000 MG/50 ML BAG IV SCH (20:01)
[2024-06-07 06:47] LABS: Basophils # (auto) 0.01 K/uL (0.00-0.20); Basophils % (auto) 0.1 %; Hematocrit (blood only) 41.3 % (42.0-52.0); Hemoglobin 14.2 g/dl (14.0-18.0); Immature Granulocytes # (auto) 0.04 K/uL (0.01-0.20); Immature Granulocytes % (auto) 0.5 %; Lymphocytes # (auto) 0.97 K/uL (1.20-3.40); Lymphocytes % (auto) 11.7 %; Mean Corpuscular Hemoglobin 30.7 pg (25.0-34.0); Mean Corpuscular Hgb Conc 34.4 g/dL (32.0-36.0); Mean Corpuscular Volume 89.4 fL (80.0-100.0); Mean Platelet Volume 9.1 fL (9.4-12.4); Monocytes # (auto) 0.81 K/uL (0.11-0.59); Monocytes % (auto) 9.8 %; Neutrophils # (auto) 6.43 K/uL (1.40-6.50); Neutrophils % (auto) 77.9 %; Platelet Count 233 K/uL (130-400); RDW Coefficient of Variation 11.7 % (11.5-14.5); RDW Standard Deviation 37.9 fL (36.4-46.3); Red Blood Count 4.62 M/uL (4.70-6.10); White Blood Count 8.26 K/ul (4.8-10.8)
[2024-06-07 07:06] LABS: Albumin Level 3.7 gm/dl (3.4-5.0); BUN Creatinine Ratio 21.1 (10-20); Calcium 8.6 mg/dl (8.6-10.3); Creatinine Clr Calc Pharmacy 76.7 ml/min; Phosphorus 2.9 mg/dl (2.5-4.9); Potassium 4.5 mmol/L (3.5-5.1)
--- NOTE | 2024-06-07 09:21 | Hospitalist Progress Note ---
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 CSF Cell counts very c/w meningitis. Glucose wnl. Total protein elevated. Monocytosis seen on differential. 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 With his significant confusion this morning I cannot rule out encephalitis from Lyme but less likely. He is day #3 of IV rocephin 2 grams daily. He remains on PO doxycycline to cover other tick-borne infections such as anaplasmosis (and pneumonia as well). Per UpToDate Lyme meningitis ideally is treated with IV rocephin daily x 14-28 days. Will involve ID tomorrow for their opinion. If MRI brain shows signs of encephalitis will involve neurology. To be complete will check CSF West Nile Virus as this virus has been isolated in [facility]. Continue supportive care. IV steroids that were being used for bronchospasm/wheezing will be stopped. Cont to Rx his headache. Appreciate interventional radiology support today. Neurochecks q4h ordered. (2) Disseminated Lyme disease: Plan: Pt's +IgM/IgG Lyme serology suggests early disseminated Lyme disease. 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 He had childhood rheumatic fever. Rarely Lyme can cause endocarditis. Will check echo to be complete. EKG and telemetry without AV block. Intervals on EKG wnl. Troponin at admission was normal making myopericarditis unlikely. (3) Acute metabolic encephalopathy: Plan: 2nd to Lyme disease. See #1 above. 2nd to pulmonary infection. Can't rule out "steroid psychosis." Steroids will be stopped. CT head 06/06 neg for acute findings. MRI brain w/ and w/o contrast ordered - r/o signs of encephalitis, etc. Supportive care. of note - pt's mental status was much better later in the day today. Neurochecks q4h. (4) Bilateral pneumonia: Plan: Respiratory BioFire testing negative at time of ER presentation. CTA chest negative for PE. CTA chest did show bilateral infiltrates, left great er than right, with mediastinal and left hilar lymphadenopathy. Day #3 of rocephin; day #3 of doxycycline. Legionella urine ag pending but doubt such. He was placed on steroids at time of admission due to significant wheezing - will stop due to #1. Cont scheduled duonebs qid. cont Tessalon. cont Mucinex. Lyme typically does not cause respiratory symptoms. Rarely anaplasmosis can cause pneumonia. Possible that he has 2 separate processes concurrently -- Lyme along with a respiratory illness. (5) Positive Lyme disease serology: Plan: see above (6) Temporal headache: Plan: 2nd to #1 Should improve next few days as Lyme is treated Oxycodone prn tylenol prn (7) Hyperlipidemia: Plan: can continue statin for now LFTs have been wnl (8) History of rheumatic fever: Plan: childhood obtain echo - r/o endocarditis, a rare manifestation of Lyme Carditis blood cx's negative to date Plan DVT proph - NO chemical DVT prophylaxis for minimum 24 hours post-LP cont NS hydration very complex care coordination today multiple visits etc. total time spent on all care activities - 90 minutes Admission and Anticipated Discharge Date Admission Date: June 05, 2024 Subjective multiple visits to pt's bedside today first visit was early this am when I entered his room there was a large puddle of urine on the floor he stated he had had urinary incontinence he was confused, unable to answer questions appropriately thought it was 2021 at one point he was just staring at me when I asked him the month he did know he was in the hospital he continued to stare at me I asked him if he was ok and he said "yes" but admitted he didn't feel well continues to have frontal headache -- not as severe as yesterday, but still present did not eat any breakfast 2nd visit was mid-day his mother was present at bedside I updated her extensively and told her an LP was planned to r/o meningitis during this 2nd visit he was more awake/alert than earlier in the morning 3rd visit was post-LP he was laying in bed eating his dinner headache was improved he stated the LP wasn't "as bad as I thought it was going to be" we discussed that the cell counts were c/w meningitis I told him I was suspicious he had Lyme meningitis updated pt's mother by phone late this evening told her results of LP, CSF BioFire, etc. Review of Systems Review of Systems: gen - ongoing fevers, weakness, anorexia cv - no chest pain pulm - cough still present; no sputum; denies dyspnea GI - no abd pain or N/V neuro - ongoing headache; no motor weakness, no paresthesias Physical Exam Physical Exam: exam during AM rounds: gen - confused, no seizure activity noted; some staring - like he didn't hear me -- but again no seizure activity seen. ill-appearing eyes - conjunctival & scleral injection b/l - improved; PERRL; no photophobia mouth - MMM neck - still no rigidity; no JVD heart - RRR, s1 s2, no murmur lungs - mild-moderate b/l wheezes, no rales, no increased work of breathing; airation improved today abd - soft NT ND BS+ ext - no edema, pulses 2+ b/l psych - oriented to person, place but not time skin - no rash Results & Data Results & Data Vital Signs (Past 12 Hours) Vital Signs Temp Pulse Pulse Resp BP BP Pulse Ox 06/07/24 09:03 06/07/24 07:51 37.3 C 82 18 116/57 L 96 06/07/24 07:39 86 14 995 H 06/07/24 07:26 92 H 06/07/24 02:51 37.7 C H 87 18 114/62 93 06/06/24 23:07 37.8 C H 82 16 100/40 L 92 06/06/24 22:00 97 H O2 Del Method FiO2 06/07/24 09:03 Room Air 06/07/24 07:51 Room Air 06/07/24 07:39 Room Air 21 06/07/24 07:26 06/07/24 02:51 Room Air 06/06/24 23:07 Room Air 06/06/24 22:00 Laboratory Results Laboratory Results - last 24 hr 06/07/24 06/07/24 06/07/24 06:19 Unknown Unknown WBC 8.26 RBC 4.62 L Hgb 14.2 Hct 41.3 L MCV 89.4 MCH 30.7 MCHC 34.4 RDW Std Deviation 37.9 RDW Coeff of [place] 11.7 Plt Count 233 MPV 9.1 L Immature Gran % (Auto) 0.5 Neut % (Auto) 77.9 Lymph % (Auto) 11.7 [place] % (Auto) 9.8 Eos % (Auto) 0.0 Baso % (Auto) 0.1 Neut # (Auto) 6.43 Lymph # (Auto) 0.97 L [place] # (Auto) 0.81 H Eos # (Auto) 0.00 Baso # (Auto) 0.01 Immature Gran # (Auto) 0.04 Sodium 135 L Potassium 4.5 Chloride 104 Carbon Dioxide 24 Anion Gap 7 BUN 26 H Creatinine 1.23 Est Cr Clr Drug Dosing 76.7 eGFR 66.38 BUN/Creatinine Ratio 21.1 H Glucose 137 H Calcium 8.6 Phosphorus 2.9 Albumin 3.7 Fld Lyme DNA (PCR) Pending Cancelled Fluid Comment CSF Appearance Clear CSF Color Colorless Xanthrochromic No xanthochromia CSF WBC 220 H* CSF RBC 11 CSF Cell Count Tube # 3 CSF Mononuclear WBCs % 94 CSF Polynuclear WBCs % 6 CSF Chemistry Tube # 1 CSF Glucose 80 H CSF Total Protein 190.6 H CSF Lyme IgG (Immblot) Pending CSF Lyme IgG Band Pattern Pending CSF Lyme IgM (Immblot) Pending CSF Lyme IgM Band Pattern Pending CSF C.neoform/gat PCR Not Detected CSF CMV DNA (PCR) Not Detected CSF Enterovirus (PCR) Not Detected CSF E. coli K1 (PCR) Not Detected CSF H. influenzae (PCR) Not Detected CSF HSV I (PCR) Not Detected CSF HSV II (PCR) Not Detected CSF HHV 6 (PCR) Not Detected CSF L.monocytogenes PCR Not Detected CSF N. meningitidis PCR Not Detected CSF Parechovirus (PCR) Not Detected CSF S. agalactiae (PCR) Not Detected CSF S. pneumoniae (PCR) Not Detected CSF VZV DNA (PCR) Not Detected A. phagocytophilum DNA Pending Lyme Specimen Source Pending Diagnostic Findings Lumbar Puncture 06/07/24 09:21 LUMBAR PUNCTURE UNDER FLUOROSCOPY CLINICAL HISTORY: Lyme's disease; fever/headache PROCEDURE: Procedure and risks were explained. Informed consent was obtained. A final timeout was completed. The patient was placed prone on the fluoroscopic exam table. The lower lumbar region was prepped and draped in sterile fashion. 1% lidocaine was utilized for skin anesthesia. Utilizing fluoroscopic guidance, a 20-gauge spinal needle was advanced into the intrathecal space at the L3-4 disc space level. Fluoroscopic spot images were obtained. Approximately 8 mL of clear CSF fluid was removed and sent to lab for analysis. The needle was removed and Band-Aid applied. The patient tolerated the procedure well. Vital signs will be monitored postprocedure. Fluoroscopy time 11 seconds. Study dosed 13.12 mGy. IMPRESSION: Lumbar puncture as above. Performed, dictated, and signed by Steffen Nettles PA-C; to be co-signed by Dr. Misha Avelar. Electronically signed by: Misha Avelar M.D. 06/07/2024 3:59 PM Microbiology 06/07/24 Unknown Cerebral Spinal Fluid Gram Stain - Final 06/06/24 16:12 Blood Aerobic Blood Culture - Preliminary No growth in Aerobic bottle after 24 hours. 06/06/24 16:12 Blood Anaerobic Blood Culture - Preliminary No growth in Anaerobic bottle after 24 hours. 06/06/24 16:21 Blood Aerobic Blood Culture - Preliminary No growth in Aerobic bottle after 24 hours. 06/06/24 16:21 Blood Anaerobic Blood Culture - Preliminary No growth in Anaerobic bottle after 24 hours. PG Care Time/CCT Total # of Minutes Spent Total Time Spent with Patient: Total time spent is greater than 50% in coordination of care (as documented) at patient's floor/unit and/or counseling patient: Prolonged Care Time Prolonged Care Time: Yes Total Prolonged Care Time: 90 Coding Level of Care Code 76340 SUB INP/OBS CARE 3/50MIN (25 - SIGNIFICANT, SEPARATELY IDENTIFIABLE ) Diagnoses Lyme meningitis A69.21 Disseminated Lyme disease A69.20 Acute metabolic encephalopathy G93.41 Bilateral pneumonia J18.9 Positive Lyme disease serology R76.8 Temporal headache R51.9 Hyperlipidemia E78.5 History of rheumatic fever Z86.79 Additional Codes Prolonged Care Time - Prolonged Care Time: Yes ([id number])
[2024-06-07 14:39] LABS: Total Protein CSF 190.6 mg/dl (15-45)
--- NOTE | 2024-06-07 15:46 | Fluoroscopy Report ---
LUMBAR PUNCTURE UNDER FLUOROSCOPY CLINICAL HISTORY: Lyme's disease; fever/headache PROCEDURE: Procedure and risks were explained. Informed consent was obtained. A final timeout was com pleted. The patient was placed prone on the fluoroscopic exam table. The lower lumbar region was prep ped and draped in sterile fashion. 1% lidocaine was utilized for skin anesthesia. Utilizing fluoroscopic guidance, a 20-gauge spinal needle was advanced into the intrathecal space at the L3-4 disc space level. Fluoroscopic spot images were obtained. Approximately 8 mL of clear CSF f luid was removed and sent to lab for analysis. The needle was removed and Band-Aid applied. The patie nt tolerated the procedure well. Vital signs will be monitored postprocedure. Fluoroscopy time 11 seconds. Study dosed 13.12 mGy. IMPRESSION: Lumbar puncture as above. Performed, dictated, and signed by Steffen Nettles PA-C; to be co-signed by Dr. Misha Avelar. Electronically signed by: Misha Avelar M.D. 06/07/2024 3:59 PM
[2024-06-07 16:39] LABS: Appearance CSF Clear; CSF Count Tube # 3; CSF Xanthrochromic No xanthochromia; Color CSF Colorless; White Blood Cell CSF Manual 220 (0-5)
[2024-06-07 16:52] LABS: Mononuclear WBC CSF Manual 94 %; Polynuclear WBC CSF Manual 6 %
[2024-06-07 17:37] LABS: Red Blood Cell CSF Manual 11 (0-)
[2024-06-07 19:36] LABS: Cryptococcus neoformans/ga PCR Not Detected (NotDetected); Cytomegalovirus PCR Not Detected (NotDetected); Enterovirus PCR Not Detected (NotDetected); Escherichia coli K1 PCR Not Detected (NotDetected); Haemophilius influenzae PCR Not Detected (NotDetected); Herpes Simplex Virus 1 PCR Not Detected (NotDetected); Herpes Simplex Virus 2 PCR Not Detected (NotDetected); Human Herpes Virus 6 PCR Not Detected (NotDetected); Human Parechovirus PCR Not Detected (NotDetected); Listeria monocytogenes PCR Not Detected (NotDetected); Neisseria meningitidis PCR Not Detected (NotDetected); Streptococcus agalactiae PCR Not Detected (NotDetected); Streptococcus pneumoniae PCR Not Detected (NotDetected); Varicella Zoster Virus PCR Not Detected (NotDetected)
[2024-06-07] MEDS ORDERED: methylPREDNISolone 30 MG in SYRINGE 0 ML IV SCH (21:00)
[2024-06-07] MEDS: GADOBUTROL 65ML VIAL IV ONE (22:13)
--- NOTE | 2024-06-08 00:06 | Magnetic Resonance Report ---
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 TECHNIQUE: Magnetic resonance images of the head/brain without and with intravenous contrast in multiple planes. Mild motion artifact. CONTRAST: Patient received 11cc gadavist of IV contrast COMPARISON: 01/28/[address] 06/06/24. FINDINGS: Brain: No mass-effect or acute infarct. No acute or chronic hemorrhage. No abnormal signal in the brain parenchyma. No abnormal enhancement or mass. Ventricles: No hydrocephalus or midline shift. Bones/joints: No calvarial lesions. Soft tissues: No scalp hematoma. Visualized Sinuses: Fluid levels bilateral sphenoid sinus, have progressed, nonspecific, cannot rule out acute sinusitis. Remaining sinuses are clear. Mastoid air cells: Moderate right mastoid effusion, nonspecific, may and/or chronic. IMPRESSION: 1. Sphenoid sinus fluid levels, nonspecific, cannot rule out acute sinusitis. 2. Right mastoid effusion. 3. No abnormal enhancement, acute infarct, bleed, or acute intracranial abnormality. Electronically signed by: Marlin Bowles M.D. 06/08/24 00:05 AM
[2024-06-08 07:31] LABS: Basophils # (auto) 0.02 K/uL (0.00-0.20); Basophils % (auto) 0.3 %; Hematocrit (blood only) 39.3 % (42.0-52.0); Hemoglobin 13.3 g/dl (14.0-18.0); Immature Granulocytes # (auto) 0.02 K/uL (0.01-0.20); Immature Granulocytes % (auto) 0.3 %; Lymphocytes # (auto) 1.33 K/uL (1.20-3.40); Lymphocytes % (auto) 19.3 %; Mean Corpuscular Hemoglobin 30.8 pg (25.0-34.0); Mean Corpuscular Hgb Conc 33.8 g/dL (32.0-36.0); Mean Platelet Volume 9.2 fL (9.4-12.4); Monocytes % (auto) 8.7 %; Neutrophils # (auto) 4.93 K/uL (1.40-6.50); Neutrophils % (auto) 71.4 %; Platelet Count 206 K/uL (130-400); RDW Coefficient of Variation 11.9 % (11.5-14.5); RDW Standard Deviation 39.3 fL (36.4-46.3); Red Blood Count 4.32 M/uL (4.70-6.10)
[2024-06-08 08:01] LABS: Albumin Level 3.4 gm/dl (3.4-5.0); BUN Creatinine Ratio 24.4 (10-20); Calcium 8.3 mg/dl (8.6-10.3); Creatinine Clr Calc Pharmacy 104.9 ml/min
--- NOTE | 2024-06-08 10:20 | Infectious Disease Consult ---
Date of Consultation June 08, 2024 Assessment & Plan (1) Bilateral pneumonia: (2) Cough: (3) Positive Lyme disease serology: (4) Temporal headache: (5) Fever: Plan 64yo M with h/o HLD who presented on 06/05 with decreased energy with worsening chest congestion, cough, and wheezing over the past 3 weeks. Also with headache that wraps around the head that is exacerbated by coughing. . He was prescribed augmentin and Tessalon pearls for a URI. However, he came to the ED given progressively worsening SOB, ongoing headaches, fatigue. Here, he was febrile with Tm 38.6. Has remained on room air. Initial labs with WBC 8.81. Cr 1.12, AST/ALT wnl. PCT 0.07. RPP negative. CXR with possible R lower lung opacity. CTA chest neg for PE, patchy bl nodular interstitial infiltrate, left>R, nonspecific, could reflect PNA though neoplasm not excluded; mildly prominent mediastinal and left hilar LNs, nonspecific. He was started on CTX and doxycycline for PNA and steroids for severe wheezing. Lyme test was sent and returned positive for IgG and IgM, anaplasma pending. Given concerns for his headaches and severity, CT head done but negative. On 06/07, he was noted to be confused, unable to answer questions appropriately, also with urinary incontinence. MRI brain done and showed sphenoid sinus fluid levels, nonspecific, cannot r/o acute sinusitis; right mastoid effusion. S/p LP on 06/07 with CSF findings showing WBC 220 (mononuclear 94%), RBC 11, glucose elevated to 80, protein elevated to 190.6. Meningitis panel negative. CSF lyme serology and WNV PCR pending. ID consulted 06/08 for assistance. Patient does have risk factors for Lyme disease, especially given that he lives in the [facility], had multiple tick bites in the past and never got doxycycline. CSF lyme serology is in process as well as West Nile. Tania also added cryptococcus though less likely in a non-immunocompromised individual. In Lyme neurologic disease, CSF can show pleocytosis with lymphocytes or monocytes, elevated protein, but normal glucose. No other reported exposures. His meningitis panel is otherwise negative and does not have meningeal signs aside from c/o headache. Ill also add test for babesia. We can continue on current regimen, which will include coverage for both acute respiratory illness as well as possible Lyme while waiting for CSF studies. I dont see a consolidation on CT chest, his PCT was low, and hes not hypoxic, therefore unclear how much he needs abx for this and would favor shorter course. # Patchy bl nodular interstitial infiltrate ?PNA # Positive Lyme serology no prior treatment # Transient AMS, ongoing headache - Tania ordered for cryptococcus Ag and babesia serology/PCR - f/u urine legionella, anaplasma - f/u CSF culture, lyme serology, WNV PCR - will continue on CTX 2g IV q24h and doxycycline 100mg PO bid ID will continue to follow. If questions or concerns, contact via [employer] or Infectious Disease Call Center . Lelo Araya MD [facility], Division of Infectious Diseases [employer]: [phone] Consultation Information Consultation was provided via telemedicine using two-way real-time interactive telecommunication between the patient and the telemedicine provider. For the duration of the visit, the provider was performing the assessment from a different facility than the patient. This includesuse of bluetooth stethoscope forauscultationperformed by the telepresenter that the telemedicine provider can hear if described in the physical exam. Finishing Machine Tender contact information: Please call [employer] [facility] Call Center . (Phone Number For Physician Use Only) After establishing a telemedicine visit, patient was: Patient was verified with two unique identifiers, Patient/authorized rep acknowledged consent and understanding and Gave permission to continue telehealth session Time Spent with Patient: Initial => 75 min History of Present Illness Reason for Consultation: Lyme meningitis Attending Physician: Mack Kearney MD History of Present Illness 64yo M with h/o HLD who presented on 06/05 with decreased energy with worsening chest congestion, cough, and wheezing over the past 3 weeks. Also with headache that wraps around the head that is exacerbated by coughing, decreased PO intake due to poor appetite. He was seen by PCP on 06/02 where they noted he had clear- white productive cough, diarrhea and chest congestion. He was prescribed augmentin and Tessalon pearls for a URI. However, he came to the ED given progressively worsening symptoms. He reported significant SOB with any sort of ambulation, ongoing headaches, and fatigue. Here, he was febrile with Tm 38.6. Has remained on room air. Initial labs with WBC 8.81. Cr 1.12, AST/ALT wnl. PCT 0.07. RPP negative. CXR with possible R lower lung opacity. CTA chest neg for PE, patchy bl nodular interstitial infiltrate, left>R, nonspecific, could reflect PNA though neoplasm not excluded; mildly prominent mediastinal and left hilar LNs, nonspecific. He was started on CTX and doxycycline for PNA and steroids for severe wheezing. Lyme test was sent and returned positive for IgG and IgM, anaplasma pending. Given concerns for his headaches and severity, CT head done but negative. On 06/07, he was noted to be confused, unable to answer questions appropriately, also with urinary incontinence. MRI brain done and showed sphenoid sinus fluid levels, nonspecific, cannot r/o acute sinusitis; right mastoid effusion. S/p LP on 06/07 with CSF findings showing WBC 220 (mononuclear 94%), RBC 11, glucose elevated to 80, protein elevated to 190.6. M eningitis panel negative. CSF lyme serology and WNV PCR pending. ID consulted 06/08 for assistance. On evaluation, patient reports that he has had a headache that wraps around his head like a hat and exacerbated by cough. He had a tick bite 8 years ago and was worked up for Lyme but was negative. Never has been treated with doxycycline. He has had numerous tick bites in the past the most recent being 7-8 years ago. He says he usually just pulls them off. [place], denies hiking/camping. He had a diarrhea but that resolved 1 week ago. He has a dog, but no other exposure to animals. No joint pains or rashes. Doesnt recall any bulls eye rash. 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 No travel. 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 Allergies Allergy/AdvReac Type Severity Reaction Status Date / Time No Known Allergies Allergy Unverified 06/02/24 12:33 Home Medications Medication Instructions Recorded Confirmed Type rosuvastatin 10 mg tablet (Crestor) 10 mg PO DAILY #90 tabs 08/21/23 06/05/24 Rx amoxicillin 875 mg-potassium 1 tab PO BID 7 days #14 tabs 06/02/24 06/05/24 Rx clavulanate 125 mg tablet benzonatate 200 mg capsule 200 mg PO TID PRN cough #20 caps 06/02/24 06/05/24 Rx Patient History Medical History History of rheumatic fever Surgical History Status post cystoscopy Family History Mother Diabetes Grandfather (Maternal) Diabetes Father Myocardial infarction Coronary heart disease Denies family history of Ovarian cancer Prostate cancer Breast cancer Lung cancer Colorectal cancer Social History Smoking Status: Never smoker Tobacco Type: Smokeless Tobacco (Dip or Chew) Age Started Using Tobacco: 13; Age Quit Using Tobacco: 56; Second Hand Exposure: No; Do You Dip or Chew Tobacco: No; Hx Alcohol Use: Yes Alcohol type: beer Alcohol Intake Frequency: 2-3 x/Week Alcohol Intake Frequency Comment: drinks 10-12 beers 2x weekly Hx Substance Use: No Preferred Language: Arabic Communication Ability: Effective Visual Impairment: No Limitations Hearing Ability: Normal Wardrobe Technician Required: No Beliefs That Will Affect Care: None marital status: marital status details: currently engaged Current Living Situation: Alone current occupational status: retired 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 Physical Exam Physical Exam: General: Awake, alert, no acute distress HEENT: NC/AT, EOMI, mmm Neck: supple Lungs: respirations non-labored Heart: nl peripheral perfusion Abdomen: soft, NT/ND Back: no spinal tenderness Ext: no LE edema Skin: no rash Neuro: moving all extremities Results & Data Vital Signs (Past 12 Hours) Vital Signs Temp Pulse Resp BP Pulse Ox O2 Del Method 06/08/24 08:09 37.5 C 79 18 110/69 92 Room Air 06/08/24 07:29 80 17 94 Room Air 06/08/24 03:35 36.9 C 88 16 117/72 93 Room Air 06/07/24 22:32 36.7 C 88 18 129/77 93 Room Air Laboratory Results Labs reviewed. Diagnostic Findings Imaging reviewed.
--- NOTE | 2024-06-08 11:10 | Hospitalist Progress Note ---
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 Glucose wnl. Total protein elevated. Monocytosis seen on differential. 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 Can't rule out other tick-borne pathogens causing meningitis. Can't rule out other viral pathogens (West Nile Virus, etc). Although he had confusion AM of 06/07 his MRI brain with contrast negative for findings that would support encephalitis. Further, his confusion was quite brief/transient. He is day #4 of IV rocephin 2 grams daily. He remains on PO doxycycline to cover other tick-borne infections such as anaplasmosis (and possible pneumonia as well). Per UpToDate Lyme meningitis ideally is treated with IV rocephin daily x 14-28 days. ID consult requested from [facility] for their opinion; appreciate their consult/recs. Sent CSF for West Nile Virus as this virus has been isolated in [facility]. Continue supportive care. Cont to Rx his headache. Appreciate interventional radiology support. Cont Neurochecks q4h. (2) Disseminated Lyme disease: Plan: Pt's +IgM/IgG Lyme serology suggests early disseminated Lyme disease. He has evidence of [employer] PAVING Lyme as in #1 above. He had childhood rheumatic fever. Rarely Lyme can cause endocarditis. Checked echo - no valvular lesions. EKG and telemetry without AV block. Intervals on EKG wnl. Troponin at admission was normal making myopericarditis highly unlikely (and no symptoms of such). (3) Acute metabolic encephalopathy: Plan: Experienced confusion on 06/07 -- improved. 2nd to Lyme disease. See #1 above. 2nd to pulmonary infection. Can't rule out "steroid psychosis." Steroids stopped. CT head 06/06 neg for acute findings. MRI brain w/ and w/o contrast - negative. No seizure activity noted at any time this admission. (4) Bilateral pneumonia: Plan: Respiratory BioFire testing negative at time of ER presentation. CTA chest negative for PE. CTA chest did show bilateral infiltrates, left greater than right, with mediastinal and left hilar lymphadenopathy. Day #4 of rocephin; day #4 of doxycycline. Legionella urine ag pending but doubt such. He was placed on steroids at time of admission due to significant wheezing - stopped due to #1. Cont scheduled duonebs qid. cont Tessalon. cont Mucinex. Lyme typically does not cause respiratory symptoms. Rarely anaplasmosis can cause pneumonia. Possible that he has 2 separate processes concurrently -- Lyme along with a respiratory illness. (5) Positive Lyme disease serology: Plan: see above (6) Temporal headache: Plan: 2nd to #1 Should improve next few days as Lyme is treated Oxycodone prn tylenol prn (7) Hyperlipidemia: Plan: can continue statin for now LFTs have been wnl (8) History of rheumatic fever: Plan: childhood, ~age 14 obtained echo - no endocarditis, no valve disease blood cx's negative to date (9) Sinusitis, acute: Plan: rocephin for suspected Lyme disease will cover sufficiently (10) Aortic root dilatation: Plan: 4.4cm made patient aware of this will need annual surveillance of such Plan DVT proph - NO chemical DVT prophylaxis until 06/09 due to recent lumbar puncture can stop IV fluids appreciate PT eval left message for pt's mother on her voicemail evening of 06/08 Admission and Anticipated Discharge Date Admission Date: June 05, 2024 Subjective pt just worked with PT and did well denies any worsening of his headache with positional changes felt decent while working with PT headache still present, but better than a few days ago still coughing no sputum denies dyspnea appetite has returned - eating much better no confusion today; thinking is clear Review of Systems Review of Systems: gen - no rigors cv - no chest pain, no orthopnea pulm - ongoing wheezing GI - no N/V Physical Exam Physical Exam: gen - looks better today, NAD, awake/alert/oriented eyes - conjunctival & scleral injection b/l - improved mouth - MMM neck - no JVD heart - RRR, s1 s2, no murmur lungs - moderate b/l wheezes, no rales, no increased work of breathing abd - soft NT ND BS+ ext - no edema, pulses 2+ b/l psych - oriented to person, place, time today neuro - gait - no ataxia Results & Data Results & Data Vital Signs (Past 12 Hours) Vital Signs Temp Pulse Resp BP Pulse Ox O2 Del Method 06/08/24 11:02 80 15 91 Room Air 06/08/24 08:09 37.5 C 79 18 110/69 92 Room Air 06/08/24 07:29 80 17 94 Room Air 06/08/24 03:35 36.9 C 88 16 117/72 93 Room Air Laboratory Results Laboratory Results - last 24 hr 06/07/24 06/07/24 06/07/24 14:21 Unknown Unknown WBC RBC Hgb Hct MCV MCH MCHC RDW Std Deviation RDW Coeff of [place] Plt Count MPV Immature Gran % (Auto) Neut % (Auto) Lymph % (Auto) [place] % (Auto) Eos % (Auto) Baso % (Auto) Neut # (Auto) Lymph # (Auto) [place] # (Auto) Eos # (Auto) Baso # (Auto) Immature Gran # (Auto) Sodium Potassium Chloride Carbon Dioxide Anion Gap BUN Creatinine Est Cr Clr Drug Dosing eGFR BUN/Creatinine Ratio Glucose Calcium Phosphorus Albumin Fld Lyme DNA (PCR) Pending Cancelled Fluid Comment CSF Appearance Clear CSF Color Colorless Xanthrochromic No xanthochromia CSF WBC 220 H* CSF RBC 11 CSF Cell Count Tube # 3 CSF Mononuclear WBCs % 94 CSF Polynuclear WBCs % 6 CSF Chemistry Tube # 1 CSF Glucose 80 H CSF Total Protein 190.6 H CSF Lyme IgG (Immblot) Pending CSF Lyme IgG Band Pattern Pending CSF Lyme IgM (Immblot) Pending CSF Lyme IgM Band Pattern Pending CSF C.neoform/gat PCR Not Detected CSF CMV DNA (PCR) Not Detected CSF Enterovirus (PCR) Not Detected CSF E. coli K1 (PCR) Not Detected CSF H. influenzae (PCR) Not Detected CSF HSV I (PCR) Not Detected CSF HSV II (PCR) Not Detected CSF HHV 6 (PCR) Not Detected CSF L.monocytogenes PCR Not Detected CSF N. meningitidis PCR Not Detected CSF Parechovirus (PCR) Not Detected CSF S. agalactiae (PCR) Not Detected CSF S. pneumoniae (PCR) Not Detected CSF VZV DNA (PCR) Not Detected CSF West Nile RNA Pending Lyme Specimen Source Pending Lyme DNA Comment Cryptococcus Source Cryptococcal Ag (Latex) West Nile Virus Source Pending 06/07/24 06/08/24 06/08/24 Unknown 07:10 10:46 WBC 6.90 RBC 4.32 L Hgb 13.3 L Hct 39.3 L MCV 91.0 MCH 30.8 MCHC 33.8 RDW Std Deviation 39.3 RDW Coeff of [place] 11.9 Plt Count 206 MPV 9.2 L Immature Gran % (Auto) 0.3 Neut % (Auto) 71.4 Lymph % (Auto) 19.3 [place] % (Auto) 8.7 Eos % (Auto) 0.0 Baso % (Auto) 0.3 Neut # (Auto) 4.93 Lymph # (Auto) 1.33 [place] # (Auto) 0.60 H Eos # (Auto) 0.00 Baso # (Auto) 0.02 Immature Gran # (Auto) 0.02 Sodium 137 Potassium 4.0 Chloride 107 Carbon Dioxide 24 Anion Gap 6 BUN 22 Creatinine 0.90 D Est Cr Clr Drug Dosing 104.9 eGFR 96.57 BUN/Creatinine Ratio 24.4 H Glucose 119 H Calcium 8.3 L Phosphorus 3.0 Albumin 3.4 Fld Lyme DNA (PCR) Fluid Comment CSF Appearance CSF Color Xanthrochromic CSF WBC CSF RBC CSF Cell Count Tube # CSF Mononuclear WBCs % CSF Polynuclear WBCs % CSF Chemistry Tube # CSF Glucose CSF Total Protein CSF Lyme IgG (Immblot) CSF Lyme IgG Band Pattern CSF Lyme IgM (Immblot) CSF Lyme IgM Band Pattern CSF C.neoform/gat PCR CSF CMV DNA (PCR) CSF Enterovirus (PCR) CSF E. coli K1 (PCR) CSF H. influenzae (PCR) CSF HSV I (PCR) CSF HSV II (PCR) CSF HHV 6 (PCR) CSF L.monocytogenes PCR CSF N. meningitidis PCR CSF Parechovirus (PCR) CSF S. agalactiae (PCR) CSF S. pneumoniae (PCR) CSF VZV DNA (PCR) CSF West Nile RNA Lyme Specimen Source Cancelled Lyme DNA Comment Cancelled Cryptococcus Source Pending Cryptococcal Ag (Latex) Pending West Nile Virus Source Diagnostic Findings Brain MRI 06/07/24 17:03 Exam(s): MRI HEAD W/WO Contrast IV Amt: 11cc gadavist EXAM: MR Head Without and With Intravenous Contrast CLINICAL HISTORY: Reason for exam: Lyme disease with [employer]ING involvement, confusion. TECHNIQUE: Magnetic resonance images of the head/brain without and with intravenous contrast in multiple planes. Mild motion artifact. CONTRAST: Patient received 11cc gadavist of IV contrast COMPARISON: 01/28/[address] 06/06/24. FINDINGS: Brain: No mass-effect or acute infarct. No acute or chronic hemorrhage. No abnormal signal in the brain parenchyma. No abnormal enhancement or mass. Ventricles: No hydrocephalus or midline shift. Bones/joints: No calvarial lesions. Soft tissues: No scalp hematoma. Visualized Sinuses: Fluid levels bilateral sphenoid sinus, have progressed, nonspecific, cannot rule out acute sinusitis. Remaining sinuses are clear. Mastoid air cells: Moderate right mastoid effusion, nonspecific, may and/or chronic. IMPRESSION: 1. Sphenoid sinus fluid levels, nonspecific, cannot rule out acute sinusitis. 2. Right mastoid effusion. 3. No abnormal enhancement, acute infarct, bleed, or acute intracranial abnormality. Electronically signed by: Marlin Bowles M.D. 06/08/24 00:05 AM PG Care Time/CCT Total # of Minutes Spent Total Time Spent with Patient: Total time spent is greater than 50% in coordination of care (as documented) at patient's floor/unit and/or counseling patient: Coding Level of Care Code 33852 SUB INP/OBS CARE 3/50MIN Diagnoses Lyme meningitis A69.21 Disseminated Lyme disease A69.20 Acute metabolic encephalopathy G93.41 Bilateral pneumonia J18.9 Positive Lyme disease serology R76.8 Temporal headache R51.9 Hyperlipidemia E78.5 History of rheumatic fever Z86.79 Sinusitis, acute J01.90 Aortic root dilatation I77.810
--- NOTE | 2024-06-08 14:53 | XCELERA ---
[id number]
--- NOTE | 2024-06-09 05:11 | Electrocardiogram Report ---
Test Reason : Blood Pressure : */* mmHG Vent. Rate : 101 BPM Atrial Rate : 101 BPM P-R Int : 126 ms QRS Dur : 74 ms QT Int : 324 ms P-R-T Axes : 71 60 54 degrees QTcB Int : 420 ms Sinus tachycardia Nonspecific ST abnormality Abnormal ECG No previous ECGs available Confirmed by Yasmany Thomas ([id number]) on 06/09/2024 5:11:07 AM Referred By: Confirmed By: Yasmany Thomas
[2024-06-09 07:43] LABS: BUN Creatinine Ratio 22.2 (10-20); Calcium 8.5 mg/dl (8.6-10.3); Creatinine Clr Calc Pharmacy 115.8 ml/min; Potassium 4.3 mmol/L (3.5-5.1)
--- NOTE | 2024-06-09 08:51 | Infectious Disease Progress Nt ---
Date of Service June 09, 2024 Assessment & Plan (1) Bilateral pneumonia: (2) Cough: (3) Positive Lyme disease serology: (4) Temporal headache: (5) Fever: Plan 64yo M with h/o HLD who presented on 06/05 with decreased energy with worsening chest congestion, cough, and wheezing over the past 3 weeks. Also with headache that wraps around the head that is exacerbated by coughing. He was prescribed augmentin and Tessalon pearls for a URI. However, he came to the ED given p rogressively worsening SOB, ongoing headaches, fatigue. Here, he was febrile with Tm 38.6. Has remained on room air. Initial labs with WBC 8.81. Cr 1.12, AST/ALT wnl. PCT 0.07. RPP negative. CXR with possible R lower lung opacity. CTA chest neg for PE, patchy bl nodular interstitial infiltrate, left>R, nonspecific, could reflect PNA though neoplasm not excluded; mildly prominent mediastinal and left hilar LNs, nonspecific. He was started on CTX and doxycycline for PNA and steroids for severe wheezing. Lyme test was sent and returned positive for IgG and IgM, anaplasma pending. Given concerns for his headaches and severity, CT head done but negative. On 06/07, he was noted to be confused, unable to answer questions appropriately, also with urinary incontinence. MRI brain done and showed sphenoid sinus fluid levels, nonspecific, cannot r/o acute sinusitis; right mastoid effusion. S/p LP on 06/07 with CSF findings showing WBC 220 (mononuclear 94%), RBC 11, glucose elevated to 80, protein elevated to 190.6. Meningitis panel negative. CSF lyme serology and WNV PCR pending. ID consulted 06/08 for assistance. TTE without significant valvular abnormality. Patient does have risk factors for Lyme disease, especially given that he lives in the [facility], had multiple tick bites in the past and never got doxycycline. CSF lyme serology is in process as well as West Nile. He also reports high risk sexual exposure so I did also ordered syphilis workup (especially with cross- reactivity with lyme), as well as HIV. 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 Otherwise, will continue him on doxycycline, which is appropriate for c/f lyme meningitis per CDC guidelines. Favor stopping CTX after today (day 5) given limited respiratory symptoms and low PCT. # Patchy bl nodular interstitial infiltrate ?PNA # Positive Lyme serology no prior treatment # Transient AMS, ongoing headache - I added syphilis screen, CSF VDRL, QFT, and HIV - f/u cryptococcus Ag, babesia serology/PCR, anaplasma - f/u CSF lyme serology, WNV PCR - will stop CTX 2g IV q24h after today - continue doxycycline 100mg PO bid (treatment for possible lyme meningitis is 14-21 days) ID will continue to follow. If questions or concerns, contact via [facility] or Infectious Disease Call Center . Lelo Araya MD [facility], Division of Infectious Diseases [facility]: [phone] Admission and Anticipated Discharge Date Admission Date: June 05, 2024 Subjective Subsequent visit was provided via telemedicine using two-way real-time interactive telecommunication between the patient and the telemedicine provider. For the duration of the visit, the provider was performing the assessment from a different facility than the patient. This includesuse of bluetooth stethoscope forauscultationperformed by the telepresenter that the telemedicine provider can hear if described in the physical exam. Principal Mechanical Engineer contact information: Please call [facility] Call Center . (Phone Number For Physician Use Only) After establishing a telemedicine visit, patient was: Patient was verified with two unique identifiers, Patient/authorized rep acknowledged consent and understanding and Gave permission to continue telehealth session Time Spent with Patient: Subsequent => 55 min Patient reports that headache is still present. He has not had any other issues. Cough seems to be improving. No SOB. No diarrhea. He says he has been sexually active, recently 1 month ago, did not use any protection. Notes only 1 sexual partner. Physical Exam Physical Exam: General: Awake, alert, no acute distress HEENT: NC/AT, EOMI, mmm Neck: supple Lungs: respirations non-labored Heart: nl peripheral perfusion Abdomen: soft, NT/ND Back: no spinal tenderness Ext: no LE edema Skin: no rash Neuro: moving all extremities Results & Data Vital Signs (Past 12 Hours) Vital Signs Temp Pulse Pulse Resp BP Pulse Ox O2 Del Method 06/09/24 07:16 37.1 C 73 20 108/70 92 Room Air, Nebulizer 06/09/24 07:15 70 18 95 Room Air 06/09/24 04:00 36.6 C 79 18 117/60 93 Room Air 06/09/24 00:00 36.7 C 76 18 103/66 93 Room Air 06/08/24 22:41 80 Laboratory Results Labs reviewed. Diagnostic Findings Imaging reviewed.
[2024-06-09] MEDS: PNEUMOCOCCAL VACCINE (PCV20) 20-VAL CONJ-DIP CRM/PF 0.5 ML SYR IM ONE (09:54)
--- NOTE | 2024-06-09 19:05 | Hospitalist Progress Note ---
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 s/p LP 06/07/24 - CSF Cell counts c/w meningitis. Glucose wnl. Total protein elevated. Total elevated WBCs along with Monocytosis seen on differential. 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 Can't rule out other tick-borne pathogens causing meningitis. Can't rule out other viral pathogens (West Nile Virus, etc). Although he had confusion AM of 06/07 his MRI brain with contrast negative for findings that would support encephalitis. Further, his confusion was quite brief/transient. He is day #5 of IV rocephin 2 grams daily. After tonight's dose will stop the rocephin. ID advising 14-21 days of PO doxycycline to cover for possible Lyme meningitis. Sent CSF for West Nile Virus as this virus has been isolated in [facility]. Lyme testing from the CSF is pending. Continue supportive care. Cont to Rx his headache. Appreciate interventional radiology support. (2) Disseminated Lyme disease: Plan: Pt's +IgM/IgG Lyme serology suggests early disseminated Lyme disease. 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 He had childhood rheumatic fever. Rarely Lyme can cause endocarditis. Checked echo - no valvular lesions. EKG and telemetry without AV block. Intervals on EKG wnl. Troponin at admission was normal making myopericarditis highly unlikely (and no symptoms of such). Stop rocephin after tonight's dose. Then PO doxy 100mg BID x 14-21 days. (3) Acute metabolic encephalopathy: Plan: Experienced confusion on 06/07. None since then. Mental status at baseline. 2nd to Lyme disease. See #1 above. 2nd to pulmonary infection. Can't rule out "steroid psychosis." Steroids stopped. CT head 06/06 neg for acute findings. MRI brain w/ and w/o contrast - negative. No seizure activity noted at any time this admission. (4) Bilateral pneumonia: Plan: Respiratory BioFire testing negative at time of ER presentation. CTA chest negative for PE. CTA chest did show bilateral infiltrates, left greater than right, with mediastinal and left hilar lymphadenopathy. Day #5 of rocephin; day #5 of doxycycline. Legionella urine ag negative. He was placed on steroids at time of admission due to significant wheezing - stopped due to #1. Cont scheduled duonebs qid. cont Tessalon. cont Mucinex. Lyme typically does not cause respiratory symptoms. Rarely anaplasmosis can cause pneumonia. Possible that he has 2 separate processes concurrently -- Lyme along with a respiratory illness. (5) Positive Lyme disease serology: Plan: see above (6) Temporal headache: Plan: 2nd to #1 Oxycodone prn tylenol prn continues to improve (7) Hyperlipidemia: Plan: can continue statin for now LFTs have been wnl (8) History of rheumatic fever: Plan: childhood, ~age 14 obtained echo - no endocarditis, no valve disease blood cx's negative to date (9) Sinusitis, acute: Plan: rocephin (or doxy) for suspected Lyme disease will cover sufficiently (10) Aortic root dilatation: Plan: 4.4cm made patient aware of this will need annual surveillance of such Plan DVT proph - ambulation, low risk can d/c home tomorrow Admission and Anticipated Discharge Date Admission Date: June 05, 2024 Subjective feeling much better just a low-grade headache at this point ambulating well eating has returned to normal cough improved no dyspnea no new symptoms Review of Systems Review of Systems: gen - no fevers or chills cv - no chest pain, no orthopnea pulm - no dyspnea or OLSON GI - no N/V Physical Exam Physical Exam: gen - looks well today, NAD mouth - MMM neck - no JVD heart - RRR, s1 s2, no murmur lungs - moderate b/l wheezes remains, scattered rales bases, no increased work of breathing abd - soft NT ND BS+ ext - no edema, pulses 2+ b/l Results & Data Results & Data Vital Signs (Past 12 Hours) Vital Signs Temp Pulse Pulse Resp BP Pulse Ox O2 Del Method 06/09/24 16:00 96 H 06/09/24 15:34 37.5 C 83 18 109/70 94 Room Air, Nebulizer 06/09/24 15:21 81 18 91 Room Air 06/09/24 11:58 36.4 C L 85 18 150/55 H 94 Room Air 06/09/24 11:30 97 H 18 93 Room Air 06/09/24 07:16 37.1 C 73 20 108/70 92 Room Air, Nebulizer 06/09/24 07:15 70 18 95 Room Air Laboratory Results Laboratory Results - last 24 hr 06/07/24 06/09/24 06/09/24 Unknown 06:46 10:04 Sodium 135 L Potassium 4.3 Chloride 105 Carbon Dioxide 25 Anion Gap 5 BUN 18 Creatinine 0.81 Est Cr Clr Drug Dosing 115.8 eGFR 99.69 BUN/Creatinine Ratio 22.2 H Glucose 102 H Calcium 8.5 L CSF VDRL Pending RPR Resp to Therapy Cancelled Treponema pallidum Ab Negative Babesia microti IgG Ab Pending Babesia microti IgM Ab Pending Babesia microti DNA PCR Pending Babesia Interpretation Pending HIV 1&2 Ab/P24 Ag 4thGn Negative TB Test (QFT) Gold Plus Pending TB Test (QFT) Nil Pending TB Test Mitogen - Nil Pending TB Test Ag - Nil 1 Pending TB Test Ag - Nil 2 Pending Diagnostic Findings Microbiology 06/07/24 Unknown Cerebral Spinal Fluid Gram Stain - Final 06/07/24 Unknown Cerebral Spinal Fluid CSF Culture - Final No growth 06/06/24 16:12 Blood Aerobic Blood Culture - Preliminary No growth in Aerobic bottle after 48 hours. 06/06/24 16:12 Blood Anaerobic Blood Culture - Preliminary No growth in Anaerobic bottle after 48 hours. 06/06/24 16:21 Blood Aerobic Blood Culture - Preliminary No growth in Aerobic bottle after 48 hours. 06/06/24 16:21 Blood Anaerobic Blood Culture - Preliminary No growth in Anaerobic bottle after 48 hours. PG Care Time/CCT Total # of Minutes Spent Total Time Spent with Patient: Total time spent is greater than 50% in coordination of care (as documented) at patient's floor/unit and/or counseling patient: Coding Level of Care Code 83568 SUB INP/OBS CARE 2/35MIN Diagnoses Lyme meningitis A69.21 Disseminated Lyme disease A69.20 Acute metabolic encephalopathy G93.41 Bilateral pneumonia J18.9 Positive Lyme disease serology R76.8 Temporal headache R51.9 Hyperlipidemia E78.5 History of rheumatic fever Z86.79 Sinusitis, acute J01.90 Aortic root dilatation I77.810
[2024-06-10 11:44] VITALS: PULSE 82; RESP 18; TEMP 98.2; O2SAT 92
--- NOTE | 2024-06-10 11:51 | Discharge Summary ---
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 Glucose wnl. Total protein elevated. Total elevated WBCs along with Monocytosis seen on differential. 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 Can't rule out other tick-borne pathogens causing meningitis. Can't rule out other viral pathogens (West Nile Virus, etc). Although he had confusion AM of 06/07 his MRI brain with contrast negative for findings that would support encephalitis. Further, his confusion was quite brief/transient. He is day #5 of IV rocephin 2 grams daily. After tonight's dose will stop the rocephin. ID advising 14-21 days of PO doxycycline to cover for possible Lyme meningitis. Sent CSF for West Nile Virus as this virus has been isolated in [facility]. Lyme testing from the CSF is pending. Continue supportive care. Cont to Rx his headache. Appreciate interventional radiology support. (2) Disseminated Lyme disease: Pt's +IgM/IgG Lyme serology suggests early disseminated Lyme disease. 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 He had childhood rheumatic fever. Rarely Lyme can cause endocarditis. Checked echo - no valvular lesions. EKG and telemetry without AV block. Intervals on EKG wnl. Troponin at admission was normal making myopericarditis highly unlikely (and no symptoms of such). Stop rocephin after tonight's dose. Then PO doxy 100mg BID x 14-21 days. (3) Acute metabolic encephalopathy: Experienced confusion on 06/07. None since then. Mental status at baseline. 2nd to Lyme disease. See #1 above. 2nd to pulmonary infection. Can't rule out "steroid psychosis." Steroids stopped. CT head 06/06 neg for acute findings. MRI brain w/ and w/o contrast - negative. No seizure activity noted at any time this admission. (4) Bilateral pneumonia: Respiratory BioFire testing negative at time of ER presentation. CTA chest negative for PE. CTA chest did show bilateral infiltrates, left greater than right, with mediastinal and left hilar lymphadenopathy. Day #5 of rocephin; day #5 of doxycycline. Legionella urine ag negative. He was placed on steroids at time of admission due to significant wheezing - stopped due to #1. Cont scheduled duonebs qid. cont Tessalon. cont Mucinex. Lyme typically does not cause respiratory symptoms. Rarely anaplasmosis can cause pneumonia. Possible that he has 2 separate processes concurrently -- Lyme along with a respiratory illness. (5) Positive Lyme disease serology: see above (6) Temporal headache: 2nd to #1 Oxycodone prn tylenol prn continues to improve (7) Hyperlipidemia: can continue statin for now LFTs have been wnl (8) History of rheumatic fever: childhood, ~age 14 obtained echo - no endocarditis, no valve disease blood cx's negative to date (9) Sinusitis, acute: rocephin (or doxy) for suspected Lyme disease will cover sufficiently (10) Aortic root dilatation: 4.4cm made patient aware of this will need annual surveillance of such Plan DVT proph - ambulation, low risk can d/c home tomorrow Admission HPI Per Admitting Provider The patient is a 64-year-old male with a past medical history including hyperlipidemia, who presents to the emergency department with symptoms as noted above. Workup in the emergency department including a negative BioFire test, the chest x-ray showed a right lower lobe infiltrate, and CTA chest was negative for PE, showed bilateral infiltrates left greater than right, and mediastinal and left hilar lymphadenopathy. Discharge Exam gen - looks well today, NAD mouth - MMM neck - no JVD heart - RRR, s1 s2, no murmur lungs - moderate b/l wheezes remains, scattered rales bases, no increased work of breathing abd - soft NT ND BS+ ext - no edema, pulses 2+ b/l Discharge Plan Discharge Items Patient Disposition: Home - Self-Care Reason For Visit: PNEUMONIA, BRONCHITIS Discharge Diagnosis: 1. Lyme disease 2. Meningitis - either due to Lyme disease or a virus - improving 3. Pneumonia/bronchitis - improving 4. Severe headache - due to #1, #2 - improved 5. Mildly dilated aorta - annual surveillance will be needed to check this Activity: As commented below Activity Comment: nothing strenuous- light activities only; gradually increase as tolerated Bathing: No limitations Sexual Activity: Wait until after follow-up appointment Exercise/Sports: Wait until after follow-up appointment Driving/Machine Use: Resume 3 days after discharge Non-emergency contact: Primary Care Provider Call non-emergency contact if: you have any medication questions, your symptoms worsen, your pain is not controlled, your pain is worsening, your pain is unusual for you, your pain is concerning for you and your temperature is above 101 Follow-up/Referrals: Nubia Arevalo DO [Primary Care Provider] - 06/17/24 8:20 am Diet: Regular Addtl Attending Provider Instructions: Mr Funes, You were hospitalized due to a respiratory illness as well as severe headache. Your CT scan of the lungs showed bilateral pneumonia. At time of admission you were started on IV antibiotics for your pneumonia. From the time you got here you had severe headache that would not resolve with medicine. We tested you for Lyme disease as well as a host of other illnesses (viral/bacterial/tick-borne). Your Lyme testing was positive. Due to the severity of the headache and with your positive Lyme testing we performed lumbar puncture to rule out meningitis. The fluid from the lumbar puncture was highly suggestive of meningitis (see handout). We suspect your meningitis was caused by Lyme disease or a virus. Your Lyme disease will resolve with ongoing antibiotics. The meningitis will resolve and your headache & other symptoms will gradually go away. Your respiratory illness & pneumonia will also resolve over time. You were seen by infectious diseases and they advised a prolonged course of oral doxycycline antibiotic which is the drug of choice to treat Lyme disease (and other diseases spread by ticks). Of note - your HIV test was negative. A screening test for syphilis was negative. We did not find any bacterial infection in the blood steam. Your echocardiogram showed health heart valves and normal heart function. The echocardiogram showed that the beginning portion of the aorta called the "aortic root" was mildly enlarged. This will require surveillance over time. Recommendations - 1. You are still recovering from a serious illness - thus, take it easy over the next 1-2 weeks. Don't do anything strenuous - light activities only for now. Then gradually increase your activities as tolerated. It is ok to rest when needed. Focus on good hydration & nutrition during your recovery. 2. Doxycycline antibiotic for Lyme Disease (this will also cover other diseases spread by ticks, and will cover certain types of bacteria that cause pneumonia) - * 100mg twice daily x 21 days, first dose TONIGHT * doxycycline can sometimes cause stomach upset/heartburn; thus, you can take vruv-apt-vxpgawb pepcid as needed * rarely doxycycline can cause a rash if you get lots of sun exposure over the next few weeks; thus, cover up well and use sunscreen over the next 3 weeks 3. For cough - * albuterol - use with spacer device (see handout) - 2 puffs every 4 hours as needed for cough/wheeze/shortness of breath * qyht-tas-uvpbhnl mucinex 1200mg every 12 hours as needed/as desired * benzonatate 200mg every 8 hours as needed 4. For headache or discomfort - * lytj-zpv-itafnhx tylenol, 1000mg every 8 hours as needed; maximum 3000mg in 24 hours * szem-kpx-vvkrqdj ibuprofen, 600mg every 8 hours as needed; take with food 5. See handouts on tick bite prevention, Lyme disease, spacers, and meningitis. 6. We will contact you with any pertinent lab results that return over the next week. 7. Follow-up - see separate section. 8. Have a repeat CT scan of your chest in about 2-3 months to ensure all of the pneumonia is gone. Your family doctor can set this up for you. Return to [facility] if - * you have fever over 101 degrees * you develop severe diarrhea * you develop shortness of breath * you develop worsening headaches, especially a headache that worsens when you stand up from a seated position * you have vomiting and can't keep food/beverage/medicines down * any other concerns It was our pleasure to care for you! Feel better :) -Dr Kearney Pending Studies at Discharge: Yes Studies:: Numerous tick-borne studies; several spinal fluid studies Stand-Alone Forms: My [facility], Smoking Cessation Medications and DC Order Prescriptions: New doxycycline hyclate 100 mg Capsule 100 mg PO BID 21 Days Qty: 42 0RF albuterol sulfate [Ventolin HFA] 90 mcg/actuation HFA aerosol inhaler 2 inh inhalation Q4H PRN (Reason: shortness of breath or wheezing or cough) Qty: 6.7 0RF Rx Instructions: use with spacer device Continued rosuvastatin [Crestor] 10 mg tablet 10 mg PO DAILY Qty: 90 2RF benzonatate 200 mg capsule 200 mg PO TID PRN (Reason: cough) Qty: 20 0RF Discontinued amoxicillin-pot clavulanate 875-125 mg tablet 1 tab PO BID 7 Days Qty: 14 0RF Discharge Orders: Discharge Order (Routine); Ordered 06/10/24 Ordered By: Mack Muro/Other Patient Handouts: Preventing Lyme Disease, Using an Inhaler with a Spacer, Meningitis, ED Lyme Disease, ED Tick Facts Admission Data Admit Date/Time: 06/05/24 23:56 Attending Provider: Mack Kearney Admit Provider: Lamin Inman Primary Care Provider: Nubia Arevalo Other Providers: Lamin Inman; Celia Mandujano; Chanda Garnett; Lelo Araya; Ashley Evangelista; Ling Cardoso; Yamilka Ugarte Hospital Stay Data Consultations 06/05/24 23:04 ED Decision to Admit Stat 06/08/24 08:36 Consult Infectious Diseases Routine Diagnostic Imagining Performed 06/05/24 20:27 CT for pulmonary embolism PE [CT angio chest PE protocol] Stat 06/06/24 12:46 CT head/brain wo con Routine 06/07/24 09:21 IR lumbar puncture diagnostic Stat 06/07/24 17:03 MR brain wo/w con Urgent Pending Results Patient Have Any Pending Studies at Discharge: Yes Discharge Instructions Given to Patient (Per Discharging Provider) Mr Funes, Speedy were hospitalized due to a respiratory illness as well as severe headache. Your CT scan of the lungs showed bilateral pneumonia. At time of admission you were started on IV antibiotics for your pneumonia. From the time you got here you had severe headache that would not resolve with medicine. We tested you for Lyme disease as well as a host of other illnesses (viral/bacterial/tick-borne). Your Lyme testing was positive. Due to the severity of the headache and with your positive Lyme testing we performed lumbar puncture to rule out meningitis. The fluid from the lumbar puncture was highly suggestive of meningitis (see handout). We suspect your meningitis was caused by Lyme disease or a virus. Your Lyme disease will resolve with ongoing antibiotics. The meningitis will resolve and your headache & other symptoms will gradually go away. Your respiratory illness & pneumonia will also resolve over time. You were seen by infectious diseases and they advised a prolonged course of oral doxycycline antibiotic which is the drug of choice to treat Lyme disease (and other diseases spread by ticks). Of note - your HIV test was negative. A screening test for syphilis was negative. We did not find any bacterial infection in the blood steam. Your echocardiogram showed health heart valves and normal heart function. The echocardiogram showed that the beginning portion of the aorta called the "aortic root" was mildly enlarged. This will require surveillance over time. Recommendations - 1. You are still recovering from a serious illness - thus, take it easy over the next 1-2 weeks. Don't do anything strenuous - light activities only for now. Then gradually increase your activities as tolerated. It is ok to rest when needed. Focus on good hydration & nutrition during your recovery. 2. Doxycycline antibiotic for Lyme Disease (this will also cover other diseases spread by ticks, and will cover certain types of bacteria that cause pneumonia) - * 100mg twice daily x 21 days, first dose TONIGHT * doxycycline can sometimes cause stomach upset/heartburn; thus, you can take hbqj-zft-ihjrwse pepcid as needed * rarely doxycycline can cause a rash if you get lots of sun exposure over the next few weeks; thus, cover up well and use sunscreen over the next 3 weeks 3. For cough - * albuterol - use with spacer device (see handout) - 2 puffs every 4 hours as needed for cough/wheeze/shortness of breath * dprn-dle-fbjgani mucinex 1200mg every 12 hours as needed/as desired * benzonatate 200mg every 8 hours as needed 4. For headache or discomfort - * jbgu-kyo-cqlfdgx tylenol, 1000mg every 8 hours as needed; maximum 3000mg in 24 hours * tmkd-ioj-cuhvzfl ibuprofen, 600mg every 8 hours as needed; take with food 5. See handouts on tick bite prevention, Lyme disease, spacers, and meningitis. 6. We will contact you with any pertinent lab results that return over the next week. 7. Follow-up - see separate section. 8. Have a repeat CT scan of your chest in about 2-3 months to ensure all of the pneumonia is gone. Your family doctor can set this up for you. Return to [facility] if - * you have fever over 101 degrees * you develop severe diarrhea * you develop shortness of breath * you develop worsening headaches, especially a headache that worsens when you stand up from a seated position * you have vomiting and can't keep food/beverage/medicines down * any other concerns It was our pleasure to care for you! 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
[2024-06-10 12:09] VITALS: BP 116/72
[2024-06-11 17:22] LABS: Cryptococcal Antigen Not Detected (Not Detected); Source Serum
[2024-06-12 07:23] LABS: West Nile Virus, PCR Source CSF; West Nile Virus, PCR, CSF NOT DETECTED (NOT DETECTED)
[2024-06-12 14:57] LABS: Quantiferon NIL 0.01 IU/mL; Quantiferon TB Gold Plus NEGATIVE (NEGATIVE); Quantiferon TB1-NIL 0.01 IU/mL; Quantiferon TB2-NIL 0.01 IU/mL
[2024-06-13 20:32] LABS: Babesia microti DNA Not Detected (Not Detected); Babesia microti IgG <1:64 titer (<1:64)
== END 2024-06-10 13:40 | disposition home or self-care (01) | DRG 867 ==
LOC: ED 18:24 → 2N 23:56 → SUATTDRO 23:56 → 2N 06-06 01:21